=== PATIENT | male | born 1960 | race Caucasian/White ===

== ENCOUNTER 2019-07-28 20:49 | Emergency (ER) | payer MEDICARE, MEDICAID, SELFPAY ==
[2019-07-28 20:51] VITALS: BP 153/91; PULSE 102; RESP 20; TEMP 36.3; O2SAT 97; BMI 35.0
--- NOTE | 2019-07-28 20:54 | W.ED.EYEPROB ---
HPI - Eye Problem General: Chief complaint: Eye Problems Stated complaint: FO R EYE Time Seen by Provider: 07/28/19 20:54 Source: patient Mode of arrival: ambulatory Limitations: no limitations History of Present Illness: HPI Narrative: Patient comes in for possible foreign body to the right eye. Patient was mowing the lawn today and thinks he got something in his eye. Patient is irrigated frequently throughout the day without any relief. Patient appears well. Patient appears in moderate discomfort. chief complaint: eye pain and foreign body Review of Systems General: Reports: 10 or more systems reviewed and unremarkable except in HPI and below Eyes: Reports: eye discomfort and eye redness PFS ED PFSH: Social History Smoking and tobacco status: current every day smoker Physical Exam Const: COMMON NORMALS: no apparent distress and oriented x3 GENERAL APPEARANCE: cooperative HENMT: COMMON NORMALS: normocephalic, TM's normal bilaterally and external nose normal HEAD & SCALP: normal to inspection and normocephalic NOSE: external nose normal TYMPANIC MEMBRANE: TM's normal bilaterally MOUTH: oral and palatal mucosa normal THROAT: posterior oropharynx normal Eye: COMMON NORMALS: PERRL, EOMs intact bilaterally and conjunctivae normal GENERAL EYE: normal light reflex VISUAL ACUITY: Yes acuity normal ALIGNMENT: Yes alignment normal EYELID: eyelid abnormal (1 mm foreign body noted to the right upper eyelid, removed with Q-tip, patient tolerated well.) CONJUNCTIVA: Yes conjunctivae normal and Yes conjunctiva abnormal positive right conjunctival injection CORNEA: Yes fluorescein used (Abrasion noted to the right lateral cornea not involving the iris or pupil.) PUPIL: Yes PERRL DIRECT OPHTHALMOSCOPY: Yes normal light reflex Neck/C-Spine: COMMON NORMALS: full ROM Lymph: LYMPHATIC: no lymphadenopathy noted Chest: COMMONS NORMALS: inspection of chest normal Resp: COMMON NORMALS: normal respiratory effort EFFORT & INSPECTION: Yes able to speak in complete sentences Cardio: COMMON NORMALS: regular rate and regular rhythm RATE: regular rate RHYTHM: regular rhythm GI: COMMON NORMALS: non-tender : COMMON NORMALS: Yes no CVA tenderness BLADDER/KIDNEY EXAM: Yes no CVA tenderness Back/Pelvis: COMMON NORMALS: no CVA tenderness and thoracic and lumbar spine normal to inspection Extremity: COMMON NORMALS: normal to inspection Neuro: COMMON NORMALS: oriented x3 and moves all extremities Psych: COMMON NORMALS: mental status grossly normal and cooperative Skin: COMMON NORMALS: no rashes or lesions noted GENERAL SKIN EXAM: no rashes or lesions noted Course Vital Signs: Vital signs: Vital Signs Temperature 97.4 F L 07/28/19 20:51 Pulse Rate 102 H 07/28/19 20:51 Respiratory Rate 20 H 07/28/19 20:51 Blood Pressure 153/91 07/28/19 20:51 Pulse Oximetry 97 07/28/19 20:51 MDM - Eye Problem MDM Narrative: Medical decision making narrative: Patient comes in today for complaints of foreign body to the right eye. On exam we noted a 1 mm dark object adhered to the inner upper eyelid on the right eye. It was easily removed with a moistened Q-tip. Fluorescein stain was used and noted abrasion to the lateral right not involving the iris or pupil. No signs of corneal laceration is noted. Pupils were equal reactive. Ocular motor movement was noted normal. Vital signs were normal. Patient was treated with tetracaine for pain tolerated well with good improvement. Patient was given eye ointment to use 3 times a day to the eye for the next 5 days for corneal abrasion for prophylaxis of infection. Reviewed recommendations for follow-up with 3 days for eye career development consultant. Patient reported understanding. Discharge Plan Discharge Patient Disposition: Home, Self-Care Clinical Impression: Corneal abrasion Qualifiers: Encounter type: initial encounter Laterality: right Qualified Code(s): S05.01XA - Injury of conjunctiva and corneal abrasion without foreign body, right eye, initial encounter Foreign body in eye Qualifiers: Encounter type: initial encounter Laterality: right Qualified Code(s): T15.91XA - Foreign body on external eye, part unspecified, right eye, initial encounter Condition: Stable Discharge Orders: Discharge Order (Routine); Ordered 07/28/19 Ordered By: Anjum Kay Referrals: Horace Noriega DO [Family Provider] - Discharge Diet: Usual diet Discharge Activity: Increase activity as tolerated Patient Instructions: Corneal Abrasion (ED) Activity Restrictions/Additional Instructions: Use eye ointment 3 times a day for then next 5 days Use eye drops for pain, 1 drop to right eye every 3 hours as needed for pain for the next 2 days Have eye rechecked in 2 days if it remains painful Return to ER for fever or worsening symptoms Follow-up with eye career development consultant in 3 days for recheck Coding Level of Care Code ED 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
[2019-07-28] MEDS: neomycin-poly-dex Op oint 3.5 gm 1 APPLIC EYE-RIGHT (21:26)
[2019-07-28] MEDS: fluorescein 1 mg Strip EYE-RIGHT (21:27)
[2019-07-28] MEDS: tetracaine 0.5% Op Soln 4 mL Btl 1 DROP EYE-RIGHT (21:27)
[2019-07-28] MEDS: eye irrigation 30 mL Btl 10 DROP EYE-RIGHT (21:27)
== END 2019-07-28 21:33 | disposition home or self-care (01) ==
PROVIDERS: Emergency Provider Nurse Practitioner Family; Family Provider Family Medicine
DX: T15.91XA Foreign body on external eye, part unspecified, right eye, initial encounter (principal); T15.01XA Foreign body in cornea, right eye, initial encounter; X58.XXXA Exposure to other specified factors, initial encounter; Y93.H2 Activity, gardening and landscaping; F17.200 Nicotine dependence, unspecified, uncomplicated
CPT/HCPCS: 12345; 99281; 99283

== ENCOUNTER 2021-07-07 16:39 | Emergency (ER) | payer MEDICARE, MEDICAID, SELFPAY ==
[2021-07-07 16:47] VITALS: BP 136/75; PULSE 90; RESP 16; TEMP 37; O2SAT 98; BMI 35.2
--- NOTE | 2021-07-07 16:50 | CTR_ITS ---
PROCEDURE INFORMATION: Exam: CT Chest With Contrast; Diagnostic Exam date and time: 07/07/2021 5:54 PM Age: 60 years old Clinical indication: Injury or trauma; Other: Crushing injury; Blunt trauma (contusions or hematomas) and crushing; Patient HX: PT was working under car and it fell on his right side; Additional info: Eval trauma TECHNIQUE: Imaging protocol: Diagnostic computed tomography of the chest with contrast. Sagittal and coronal reformatted images were created and reviewed. Radiation optimization: All CT scans at this facility use at least one of these dose optimization techniques: automated exposure control; mA and/or kV adjustment per patient size (includes targeted exams where dose is matched to clinical indication); or iterative reconstruction. Contrast material: OMNI 300; Contrast volume: 95 ml; Contrast route: INTRAVENOUS (IV); COMPARISON: CR (CHEST, ) 07/07/2021 4:19 PM RADIATION DOSE METRICS: Total DLP (mGy-cm): 1965.58 FINDINGS: Trachea: Debris layering in the right mainstem bronchus. This may represent bronchial secretions. Lungs: Lungs are clear bilaterally. Calcified granuloma in the right lower lobe. Pleural spaces: No pneumothorax. No pleural effusion. Heart: The heart is unremarkable as visualized. Esophagus: The esophagus is unremarkable. Mediastinal space: No mediastinal hematoma. No pneumomediastinum. Pulmonary arteries: Pulmonary arteries are unremarkable. Aorta: No evidence for aortic aneurysm or aortic dissection. No extravasation of contrast from the thoracic vessels. Veins: Pulmonary veins are unremarkable. Lymph nodes: No lymphadenopathy. Bones/joints: There is a transverse fracture of the mid/distal right clavicle. There is anterior displacement of 1 shaft width with approximately 1.4 cm of override of the distal fracture fragment. Multiple old right-sided rib fractures. Acute mildly displaced fractures of the anterior right 2nd, 3rd, and 4th ribs. Nondisplaced acute fractures of the posterior right 2nd, 3rd, and 4th ribs. Nondisplaced acute fracture of the lateral left 4th rib. Multilevel degenerative changes of varying severity in the visualized spine. Old, mild compression deformity of T8. Soft tissues: No acute abnormality in the extrathoracic soft tissues. PROCEDURE INFORMATION: Exam: CT Abdomen And Pelvis With Contrast Exam date and time: 07/07/2021 5:54 PM Age: 60 years old Clinical indication: Injury or trauma; Other: Crushing injury; Blunt trauma (contusions or hematomas) and crushing; Patient HX: PT was working under car and it fell on his right side; Additional info: Eval trauma TECHNIQUE: Imaging protocol: Computed tomography of the abdomen and pelvis with contrast. Sagittal and coronal reformatted images were created and reviewed. Radiation optimization: All CT scans at this facility use at least one of these dose optimization techniques: automated exposure control; mA and/or kV adjustment per patient size (includes targeted exams where dose is matched to clinical indication); or iterative reconstruction. Contrast material: OMNI 300; Contrast volume: 95 ml; Contrast route: INTRAVENOUS (IV); COMPARISON: CR (CHEST, ) 07/07/2021 4:19 PM RADIATION DOSE METRICS: Total DLP (mGy-cm): 1965.58 FINDINGS: Liver: The liver is unremarkable. Gallbladder and bile ducts: Single gallstone in the gallbladder. No gallbladder wall thickening. No biliary ductal dilatation. Pancreas: The pancreas is unremarkable. No pancreatic ductal dilatation. Spleen: Calcified granuloma in the spleen. Adrenal glands: The right and left adrenal glands are unremarkable. Kidneys and ureters: The right and left kidneys are unremarkable. The right and left ureters are unremarkable. Stomach and bowel: No obstruction. No mucosal thickening. Appendix: The appendix is visualized and is unremarkable. No findings to suggest acute appendicitis. Intraperitoneal space: No free intraperitoneal air. No ascites. No loculated fluid collections to suggest an abscess. Vasculature: Mild atherosclerotic changes in the visualized arteries. No evidence for aortic aneurysm or aortic dissection. Hepatic veins, portal veins, splenic vein, and SMV are patent. No extravasation of contrast from the abdominopelvic vessels. Lymph nodes: No lymphadenopathy. Urinary bladder: Unremarkable as visualized. Reproductive: The prostate gland is mildly enlarged. Nonspecific parenchymal calcifications in the prostate gland. Bones/joints: The right and left sacroiliac joints are fused. Moderate degenerative changes at both the right and left hips. Multilevel degenerative changes of varying severity in the visualized spine. No acute fracture. Soft tissues: No acute abnormality in the extra-abdominal soft tissues. Small fat containing supraumbilical hernia. No evidence for strangulation. CT/CT chest abd pel w con* IMPRESSION: 1. There is a transverse fracture of the mid/distal right clavicle. There is anterior displacement of 1 shaft width with approximately 1.4 cm of override of the distal fracture fragment. 2. Acute mildly displaced fractures of the anterior right 2nd, 3rd, and 4th ribs. Nondisplaced acute fractures of the posterior right 2nd, 3rd, and 4th ribs. Nondisplaced acute fracture of the lateral left 4th rib. 3. No evidence for cardiovascular or pulmonary injury. 4. Debris layering in the right mainstem bronchus. This may represent bronchial secretions. 5. Incidental/nonacute findings are listed in the report. IMPRESSION: 1. No acute abnormality in the abdomen or pelvis. 2. No evidence for acute traumatic injury in the abdomen or pelvis. 3. Cholelithiasis. 4. Incidental/nonacute findings are listed in the report.
--- NOTE | 2021-07-07 16:57 | W.ED.EXTPRO ---
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
[2021-07-07 17:09] VITALS: RESP 16
[2021-07-07] MEDS: morphine 4 mg/mL SDV 1 mL 2 MG IVP (17:09)
[2021-07-07 17:21] LABS: Basophils # 0.1 10^3/uL (0.0-0.1); Basophils % 0.6 %; Eosinophils # 0.1 10^3/uL (0.0-0.8); Hematocrit 44.7 % (42.0-52.0); Hemoglobin 14.5 g/dL (11.7-16.6); Lymphocytes # 2.9 10^3/uL (0.8-4.8); Lymphocytes % 27.4 %; Mean Corpuscular HGB Conc 32.4 g/dL (30.0-36.0); Mean Corpuscular Hemoglobin 28.2 pg (28.0-34.0); Mean Platelet Volume 10.2 fL (7.4-10.4); Monocytes # 0.8 10^3/uL (0.2-0.9); Monocytes % 7.3 %; Nucleated Red Blood Cells % 0 %; Platelet Count 257 10^3/cmm (130-400); Red Blood Count 5.14 10^6/uL (4.1-5.3); White Blood Count 10.6 10^3/uL (4.0-10.0)
[2021-07-07 17:43] LABS: Anion Gap 13.6 (5-19); Blood Urea Nitrogen 12 mg/dL (6-20); Calcium 10.4 mg/dL (8.5-10.5); Carbon Dioxide 30 mmol/L (22-29); Chloride 96 mmol/L (98-107); Glomerular Filtration Rate 138.4 mL/min (90-130); Glucose 96 mg/dL (65-115); Osmolality Calculated 282 mOsm/kg (285-295); Potassium 3.6 mmol/L (3.5-5.1); Sodium 136 mmol/L (136-145)
[2021-07-07 17:45] VITALS: RESP 16
[2021-07-07] MEDS: HYDROmorphone 1 mg/mL INJ 1 mL 0.5 MG IVP (17:45)
[2021-07-07] MEDS: iohexol 300 mg/mL 100 mL Btl IV (17:51)
--- NOTE | 2021-07-07 19:02 | PC.NURSE ---
report given to adam rn assumed care.
[2021-07-07 19:15] VITALS: BP 145/79; PULSE 78; RESP 18; TEMP 36.7; O2SAT 95
--- NOTE | 2021-07-07 19:29 | PC.NURSE ---
declines to stay and wait on RT for IS
--- NOTE | 2021-07-12 11:48 | DCPLANNER ---
manager project management had message to speak with patient about getting established with a primary care physician. manager project management spoke with patient, he stated that he has a primary care physician. Patient states that [place] [facility] [place]
== END 2021-07-07 19:30 | disposition home or self-care (01) ==
PROVIDERS: Emergency Provider Emergency Medicine
DX: S42.031A Displaced fracture of lateral end of right clavicle, initial encounter for closed fracture (principal); S22.43XA Multiple fractures of ribs, bilateral, initial encounter for closed fracture; M54.2 Cervicalgia; R07.9 Chest pain, unspecified; F17.210 Nicotine dependence, cigarettes, uncomplicated; W20.8XXA Other cause of strike by thrown, projected or falling object, initial encounter
CPT/HCPCS: 70450; 71045; 71260; 72125; 72170; 74177; 80048; 85025; 96374; 96375; 99283; J1170; J2270; Q9967

== ENCOUNTER 2021-07-22 14:55 | Emergency (ER) | payer MEDICARE, MEDICAID, SELFPAY ==
[2021-07-22 15:05] VITALS: BP 146/65; PULSE 87; RESP 20; TEMP 37.1; O2SAT 98; BMI 29.1
[2021-07-22 15:17] VITALS: BP 121/71; PULSE 87; RESP 20; O2SAT 97
--- NOTE | 2021-07-22 15:26 | XR_ITS ---
WS: [id number] Exam: XR shoulder LT min 2V* [id number] Date/Time of Exam: 07/22/2021 3:29 PM Reason For Exam: trauma No fracture or dislocation. Degenerative change at the AC joint with the heterotropic ossification al uriel the superior margin of the joint. Soft tissues are otherwise unremarkable. XR/XR shoulder LT min 2V* [id number] IMPRESSION: 1. No fracture or dislocation. 2. Degenerative changes at the AC joint as above.
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
--- NOTE | 2021-07-25 10:30 | DCPLANNER ---
Addendum entered by Lucy Rojas 08/31/21 20:43: Patient had a follow up appointment scheduled with ortho - patient did attend appointment. Addendum entered by Lucy Rojas 07/26/21 08:00: Patient has a follow up appointment scheduled for Monday, August 16, 2021 at 3:[address] Sheets at ortho. Clinic will call patient with appointment information. Original Note: geothermal production manager had message to schedule a follow up appointment for patient with ortho. geothermal production manager sent patients information to the front staff at ortho thru workload messaging system. Patients information will be printed and reviewed. Clinic will call patient with appointment information.
== END 2021-07-22 16:18 | disposition home or self-care (01) ==
PROVIDERS: Emergency Provider Physician Assistant
DX: M25.512 Pain in left shoulder (principal); F17.210 Nicotine dependence, cigarettes, uncomplicated
CPT/HCPCS: 73030; 99282

== ENCOUNTER 2022-10-20 06:00 | Emergency (ER) | payer MEDICARE, MEDICAID, SELFPAY ==
[2022-10-20 06:01] VITALS: BP 124/67; PULSE 93; RESP 20; TEMP 36.8; O2SAT 95; BMI 20.3
--- NOTE | 2022-10-20 06:06 | XR_ITS ---
WS: [id number] Exam: XR chest 1V portable [id number] Date/Time of Exam: 10/20/2022 6:06 AM Reason For Exam: sob The lungs are clear and fully inflated. Normal cardiomediastinal silhouette. Several old right rib fr actures. Nonunion fracture of the right clavicle. Healed left clavicle fracture. Degenerative changes of the thoracic spine moderate DJD of both shoulders. XR/XR chest 1V portable [id number] IMPRESSION: 1. No acute cardiopulmonary process.
--- NOTE | 2022-10-20 06:08 | ECG_ITS ---
[facility] Test Date: 2022-10-20 Pat Name: Charbel Hood Department: Room: Gender: Male Patient Biller: : [id number] Requested By: Horace Coelho Order Number: [id number] Stephane MD: Serge Echeverria M.D. Measurements Intervals [place] Rate: 77 P: 64 SC: 152 QRS: 69 QRSD: 106 T: 79 QT: 370 QTc: 421 Interpretive Statements SINUS RHYTHM WITH OCCASIONAL VENTRICULAR PREMATURE COMPLEXES Compared to ECG 10/17/2022 12:19:13 Ventricular premature complex(es) now present Electronically Signed On 10-20-2022 15:49:35 CDT by Serge Echeverria M.D. [id number]
--- NOTE | 2022-10-20 06:11 | ED_ITS ---
HPI - SOB/Dyspnea General: Chief Complaint: Shortness of Breath/Dyspnea Stated Complaint: SOB Time Seen by Provider: 10/20/22 06:01 History of Present Illness: HPI Narrative: 62-year-old male who presents presents emergency room via EMS complaining of shortness of breath. States he had an asthma attack. He was given albuterol in route with some mild relief of symptoms. He does state he is doing somewhat better. No fever sweats or chills or productive cough. He has a small-volume nebulizer but he does not have any albuterol for that. He has had increasing trouble with the recent heat wave. MD elicited complaint: shortness of breath and cough Pertinent past history: asthma Onset (ago): day(s) Timing: intermittent Severity: moderate Exacerbating factors: exertion, coughing, inspiration and humidity Relieving factors: rest and bronchodilators Known history of: asthma Associated symptoms: Deny abdominal pain, chest congestion, chest pain, cough, diaphoresis, dizziness, extremity pain, fever(s), hemoptysis, lightheadedness, myalgias, nausea, orthopnea, palpitations, paresthesias, polydipsia, polyuria, rash, sense of impending doom, syncope or vomiting Treatment prior to arrival: oxygen and bronchodilator Review of Systems Const: Denies: fever(s), chills or diaphoresis ENMT: Denies: throat pain, ear or mastoid pain, nasal discharge or nasal congestion Card: Denies: chest pain, palpitations, lightheadedness, syncope or orthopnea Resp: Reports: dyspnea, non-productive cough and wheezing; Denies: hemoptysis or chest congestion GI: Denies: abdominal pain, nausea or vomiting : Denies: flank pain, dysuria, urinary frequency or urinary urgency Musc: Denies: extremity pain Skin/Breast: Denies: rash or pruritus Neuro: Denies: dizziness Endo: Denies: polyuria or polydipsia PFSH ED PFSH: Social History Smoking and tobacco status: current every day smoker Physical Exam Const: GENERAL APPEARANCE: cooperative and comfortable ORIENTATION/CONSCIOUSNESS: Yes awake, Yes oriented to person, Yes oriented to place and Yes oriented to time HENMT: COMMON NORMALS: normocephalic, atraumatic and hearing grossly normal bilaterally HEAD & SCALP: normocephalic and atraumatic Resp: COMMON NORMALS: normal respiratory effort, No retractions and No use of accessory muscles AUSCULTATION: wheezes Cardio: COMMON NORMALS: regular rate, regular rhythm and No murmurs present (Cardio) RATE: regular rate RHYTHM: regular rhythm GI: COMMON NORMALS: Soft to palpation and No hepatosplenomegaly present AUSCULTATION: Yes normoactive bowel sounds PALPATION: Yes Soft to palpation, No Tenderness to palpation present (GI), No Guarding due to palpation present (GI) and Yes No hepatosplenomegaly present Extremity: COMMON NORMALS: normal to inspection, capillary refill normal, no clubbing, cyanosis or edema, no calf tenderness and no pedal edema Neuro: SENSORIUM/ORIENTATION: Yes oriented to person, Yes oriented to place and Yes oriented to time Skin: COMMON NORMALS: no rashes or lesions noted GENERAL SKIN EXAM: no rashes or lesions noted Course Vital Signs: Vital signs: Vital Signs Temperature 98.3 F 10/20/22 06:01 Pulse Rate 92 10/20/22 07:10 Respiratory Rate 18 10/20/22 07:10 Blood Pressure 109/57 10/20/22 07:10 Pulse Oximetry 94 10/20/22 07:10 Oxygen Delivery Me thod Room Air 10/20/22 06:18 MDM - SOB/Dyspnea Medical Decision Making Improved with nebulizers and steroids. Chest x-ray unremarkable. We will discharge patient home on steroid taper gave refill for albuterol. Follow-up with his primary care doctor. Return if has further problems avoid heat and tobacco smoke exposure. Medical Records I reviewed the patient's medical records. Lab Data I reviewed the patient's lab results. Labs/Radiology: Radiology Impressions Chest X-Ray 10/20/22 06:06 IMPRESSION: 1. No acute cardiopulmonary process. Discharge Plan Discharge Patient Disposition: Home Clinical Impression: Asthma with exacerbation Condition: Stable Prescriptions: New prednisone 20 mg tablet 20 mg PO TID Qty: 15 0RF Rx Instructions: 1 p.o. 3 times daily x3 days, 1 p.o. twice daily x2 days, 1 p.o. daily x2 days albuterol sulfate 2.5 mg /3 mL (0.083 %) solution for nebulization 2.5 mg inhalation Q4H PRN (Reason: shortness of breath or wheezing) Qty: 90 0RF No Action albuterol sulfate 2.5 mg /3 mL (0.083 %) solution for nebulization 2.5 mg inhalation TID doxycycline hyclate 100 mg capsule 100 mg PO BID 7 Days Qty: 14 0RF Discharge Orders: Discharge ED (Routine); Ordered 10/20/22 Ordered By: Horace Noriega Referrals: Pili Longo MD [Primary Care Provider] - Patient Instructions: Asthma Exacerbation - Adult, Opioid Safety, Pain Management Coding Level of Care Code ED Mixing Roll Operator for David De La Garza
[2022-10-20] MEDS: dexamethasone 10 mg/mL INJ IM (06:15)
[2022-10-20 06:18] VITALS: PULSE 87; RESP 20; O2SAT 96
[2022-10-20] MEDS: ipratropium-albuterol 3 mL Neb INHALATION (06:18)
[2022-10-20 07:10] VITALS: BP 109/57; PULSE 92; RESP 18; O2SAT 94
== END 2022-10-20 07:11 | disposition home or self-care (01) ==
PROVIDERS: Emergency Provider Family Medicine; PCP Family Medicine
DX: J45.901 Unspecified asthma with (acute) exacerbation (principal); F17.210 Nicotine dependence, cigarettes, uncomplicated
CPT/HCPCS: 71045; 93005; 94640; 96372; 99284; J1100

== ENCOUNTER 2022-10-21 10:07 | Emergency (ER) | payer MEDICARE, MEDICAID, SELFPAY ==
[2022-10-21 10:08] VITALS: BP 116/94; PULSE 97; RESP 17; TEMP 36.9; O2SAT 94
--- NOTE | 2022-10-21 10:24 | W.ED.SOB ---
HPI - SOB/Dyspnea General: Chief Complaint: Shortness of Breath/Dyspnea Stated Complaint: SOB Time Seen by Provider: 10/21/22 10:10 History of Present Illness: HPI Narrative: Presents to the ER by EMS with complaints of shortness of breath. Patient states he is walking to [facility] for 30 this morning to get him some food and on the way back he gets short of breath. Patient is currently homeless. Patient was seen approximately twice in the last 4 days. Patient has been discharged with doxycycline, albuterol, prednisone, and said it is worked a little bit but then he got more short of breath today so he decided come back to the ER. MD elicited complaint: shortness of breath Pertinent past history: COPD Context: occurred during exertion Timing: improved Severity: mild Exacerbating factors: exertion Relieving factors: oxygen, rest, bronchodilators and medication Known history of: COPD Associated symptoms: Reports no associated symptoms Treatment prior to arrival: oxygen and bronchodilator Review of Systems General: Reports: 10 or more systems reviewed and unremarkable except in HPI and below PFSH ED PFSH: Social History Smoking and tobacco status: current every day smoker Physical Exam Const: COMMON NORMALS: no acute distress, average body habitus, patient oriented x3, no limitations, healthy appearing, alert and well nourished HENMT: COMMON NORMALS: normocephalic, atraumatic, hearing grossly normal bilaterally, external ears normal, Normal external nose present and moist oral mucous membranes HEAD & SCALP: normocephalic and atraumatic NOSE: Normal external nose present EXTERNAL EAR: Yes external ears normal Eye: COMMON NORMALS: Equal, round and reactive pupils present, EOMs intact bilaterally, conjunctivae normal and no scleral icterus CONJUNCTIVA: Yes conjunctivae normal PUPIL: Yes Equal, round and reactive pupils present Neck/C-Spine: COMMON NORMALS: full ROM, no lymphadenopathy, supple, no meningeal signs, no JVD and Thyroid normal THYROID: Thyroid normal Chest: COMMONS NORMALS: normal inspection of the chest and normal palpation of entire chest wall Resp: EFFORT & INSPECTION: Yes able to speak in complete sentences and Yes symmetric chest movement AUSCULTATION: wheezes Cardio: COMMON NORMALS: no JVD, regular rate, regular rhythm, S1 normal heart sound present, S2 normal heart sound present, No gallops present (Cardio), No clicks present (Cardio), No murmurs present (Cardio) and No rub (Cardio) RATE: regular rate RHYTHM: regular rhythm HEART SOUNDS: S1 normal heart sound present and S2 normal heart sound present GI: COMMON NORMALS: Normal to inspection, nondistended, normoactive bowel sounds present, Soft to palpation, non-tender, No hepatosplenomegaly present and no masses PALPATION: Yes Soft to palpation and Yes No hepatosplenomegaly present Neuro: COMMON NORMALS: patient oriented x3 SENSORIUM/ORIENTATION: Yes alert MENINGEAL SIGNS: Yes no meningeal signs Course Vital Signs: Vital signs: Vital Signs Temperature 98.4 F 10/21/22 10:08 Pulse Rate 97 10/21/22 10:08 Respiratory Rate 17 10/21/22 10:08 Blood Pressure 116/94 10/21/22 10:08 Pulse Oximetry 94 10/21/22 10:08 Oxygen Delivery Me thod Room Air 10/21/22 10:08 MDM - SOB/Dyspnea Medical Decision Making Patient presents to the ER with complaints of shortness of breath. This is the third time in 4 days. Patient does have albuterol, doxycycline, prednisone at home. Patient was given albuterol treatment on route patient received a DuoNeb treatment in ER as well as 10 mg Decadron. Patient will be discharged back home to continue taking the medicine he is currently on. Medical Records I reviewed the patient's medical records. Lab Data I reviewed the patient's lab results. Discharge Plan Discharge Patient Disposition: Home Clinical Impression: Homeless, Acute exacerbation of chronic obstructive airways disease Condition: Stable Prescriptions: No Action prednisone 20 mg tablet 20 mg PO TID Qty: 15 0RF Rx Instructions: 1 p.o. 3 times daily x3 days, 1 p.o. twice daily x2 days, 1 p.o. daily x2 days albuterol sulfate 2.5 mg /3 mL (0.083 %) solution for nebulization 2.5 mg inhalation Q4H PRN (Reason: shortness of breath or wheezing) Qty: 90 0RF albuterol sulfate 2.5 mg /3 mL (0.083 %) solution for nebulization 2.5 mg inhalation TID doxycycline hyclate 100 mg capsule 100 mg PO BID 7 Days Qty: 14 0RF Discharge Orders: Discharge ED (Routine); Ordered 10/21/22 Ordered By: Paulie Serna Referrals: Pili Longo MD [Primary Care Provider] - Patient Instructions: Opioid Safety, Pain Management Coding Level of Care Code ED Artificial Breeding Ranch Supervisor for David De La Garza
[2022-10-21] MEDS: ipratropium-albuterol 3 mL Neb INHALATION (10:28)
[2022-10-21 10:30] VITALS: PULSE 93; RESP 17; O2SAT 95
[2022-10-21] MEDS: dexamethasone 10 mg/mL INJ IM (10:32)
[2022-10-21 10:41] VITALS: BP 116/94; PULSE 97; RESP 18; O2SAT 96
== END 2022-10-21 10:42 | disposition home or self-care (01) ==
PROVIDERS: Emergency Provider Emergency Medicine; PCP Family Medicine
DX: J44.1 Chronic obstructive pulmonary disease with (acute) exacerbation (principal); Z59.00 Homelessness unspecified
CPT/HCPCS: 94640; 96372; 99283; 99284; J1100; J3535

== ENCOUNTER 2022-10-21 17:40 | Emergency (ER) | payer MEDICARE, MEDICAID, SELFPAY ==
[2022-10-21 18:07] VITALS: BP 148/62; PULSE 84; RESP 20; TEMP 36.8; O2SAT 93
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
[2022-10-21] MEDS: ipratropium-albuterol 3 mL Neb INHALATION (18:47)
[2022-10-21] MEDS: albuterol 8 gm MDI 2 PUFF INHALATION (18:48)
[2022-10-21 18:49] VITALS: PULSE 79; RESP 16; O2SAT 99
== END 2022-10-21 19:02 | disposition home or self-care (01) ==
PROVIDERS: Emergency Provider Nurse Practitioner Family; PCP Family Medicine
DX: J41.0 Simple chronic bronchitis (principal)
CPT/HCPCS: 94640; 99283; J3535

== ENCOUNTER 2022-10-22 12:19 | Emergency (ER) | payer MEDICARE, MEDICAID, SELFPAY ==
[2022-10-22 12:29] VITALS: BP 141/86; PULSE 78; RESP 22; TEMP 36.9; O2SAT 95
--- NOTE | 2022-10-22 12:38 | W.ED.SOB ---
HPI - SOB/Dyspnea General: Chief Complaint: Shortness of Breath/Dyspnea Stated Complaint: sob Time Seen by Provider: 10/22/22 12:30 Source: patient Mode of arrival: ambulatory Limitations: no limitations History of Present Illness: HPI Narrative: 62-year-old male who is homeless has been seen here multiple times over the last week for shortness of breath he states that he does not have an albuterol inhaler he states he was written a prescription but cannot get it filled he states he needs albuterol he has had a slight dyspnea he is well-appearing here he is 96% on room air denies any worsening proving factors. Associated symptoms: Deny abdominal pain, chest pain, fever(s), nausea or vomiting Review of Systems Const: Denies: fever(s), chills or body aches Eyes: Denies: eye discomfort ENMT: Denies: throat pain or dental pain Card: Denies: chest pain Resp: Reports: dyspnea GI: Denies: abdominal pain, nausea, vomiting or diarrhea Musc: Denies: neck pain or back pain Skin/Breast: Denies: rash Neuro: Denies: headache(s) PFSH ED PFSH: Social History Smoking and tobacco status: current every day smoker Physical Exam Const: COMMON NORMALS: no acute distress, patient oriented x3 and healthy appearing HENMT: COMMON NORMALS: normocephalic and atraumatic HEAD & SCALP: normocephalic and atraumatic Eye: COMMON NORMALS: Equal, round and reactive pupils present and EOMs intact bilaterally PUPIL: Yes Equal, round and reactive pupils present Neck/C-Spine: COMMON NORMALS: full ROM and supple Chest: COMMONS NORMALS: normal inspection of the chest and normal palpation of entire chest wall Resp: COMMON NORMALS: normal respiratory effort, No retractions, No use of accessory muscles and clear to auscultation bilaterally AUSCULTATION: clear to auscultation bilaterally Cardio: COMMON NORMALS: regular rate, regular rhythm and No murmurs present (Cardio) RATE: regular rate RHYTHM: regular rhythm GI: COMMON NORMALS: Normal to inspection, nondistended, normoactive bowel sounds present, Soft to palpation, non-tender and no masses PALPATION: Yes Soft to palpation Extremity: COMMON NORMALS: normal to inspection and full ROM Neuro: COMMON NORMALS: patient oriented x3, moves all extremities and no focal motor deficits Psych: COMMON NORMALS: mental status grossly normal, Normal thought process present and cooperative THOUGHT PROCESS: Normal thought process present Skin: COMMON NORMALS: no rashes or lesions noted and no wounds GENERAL SKIN EXAM: no rashes or lesions noted Course Vital Signs: Vital signs: Vital Signs Temperature 98.5 F 10/22/22 12:29 Pulse Rate 78 10/22/22 12:29 Respiratory Rate 22 H 10/22/22 12:29 Blood Pressure 141/86 10/22/22 12:29 Pulse Oximetry 95 10/22/22 12:29 Oxygen Delivery Me thod Room Air 10/22/22 12:29 MDM - SOB/Dyspnea Medical Decision Making Patient presents with dyspnea he is homeless and does not have any albuterol inhalers we will send him home with an inhaler he is well-appearing here he is in no distress he is stable for discharge. Discharge Plan Discharge Patient Disposition: Home Clinical Impression: Dyspnea Condition: Stable Prescriptions: No Action prednisone 20 mg tablet 20 mg PO TID Qty: 15 0RF Rx Instructions: 1 p.o. 3 times daily x3 days, 1 p.o. twice daily x2 days, 1 p.o. daily x2 days albuterol sulfate 2.5 mg /3 mL (0.083 %) solution for nebulization 2.5 mg inhalation Q4H PRN (Reason: shortness of breath or wheezing) Qty: 90 0RF albuterol sulfate 2.5 mg /3 mL (0.083 %) solution for nebulization 2.5 mg inhalation TID doxycycline hyclate 100 mg capsule 100 mg PO BID 7 Days Qty: 14 0RF Discharge Orders: Discharge ED (Routine); Ordered 10/22/22 Ordered By: Idalia Pickett Referrals: Pili Longo MD [Primary Care Provider] - 1-3 days Discharge Diet: Advance as tolerated Discharge Activity: Resume usual activity Patient Instructions: Dyspnea (ED) Coding Level of Care Code ED Underground Truck Operator for David De La Garza
[2022-10-22] MEDS: albuterol 8 gm MDI 2 PUFF INHALATION (12:56)
[2022-10-22 12:57] VITALS: PULSE 89; RESP 18; O2SAT 96
[2022-10-22 13:11] VITALS: PULSE 89; RESP 18; O2SAT 96
== END 2022-10-22 13:12 | disposition home or self-care (01) ==
PROVIDERS: Emergency Provider Emergency Medicine; PCP Family Medicine
DX: R06.00 Dyspnea, unspecified (principal); F17.210 Nicotine dependence, cigarettes, uncomplicated
CPT/HCPCS: 94640; 99283; J3535

== ENCOUNTER 2022-10-22 20:12 | Emergency (ER) | payer MEDICARE, MEDICAID, SELFPAY ==
[2022-10-22 20:21] VITALS: BP 136/77; PULSE 81; RESP 16; TEMP 37.2; O2SAT 94; BMI 25.3
--- NOTE | 2022-10-22 20:30 | W.ED.WOUNDLC ---
HPI - Wound/Laceration General: Chief Complaint: Wound/Laceration Stated Complaint: fall, head lac Time Seen by Provider: 10/22/22 20:20 PFSH ED PFSH: Social History Smoking and tobacco status: current every day smoker Course Vital Signs: Vital signs: Vital Signs Temperature 98.9 F 10/22/22 20:21 Pulse Rate 81 10/22/22 20:21 Respiratory Rate 16 10/22/22 20:21 Blood Pressure 136/77 10/22/22 20:21 Pulse Oximetry 94 10/22/22 20:21 Oxygen Delivery Me thod Room Air 10/22/22 20:21 Discharge Plan Discharge Condition: Stable Prescriptions: No Action prednisone 20 mg tablet 20 mg PO TID Qty: 15 0RF Rx Instructions: 1 p.o. 3 times daily x3 days, 1 p.o. twice daily x2 days, 1 p.o. daily x2 days albuterol sulfate 2.5 mg /3 mL (0.083 %) solution for nebulization 2.5 mg inhalation Q4H PRN (Reason: shortness of breath or wheezing) Qty: 90 0RF albuterol sulfate 2.5 mg /3 mL (0.083 %) solution for nebulization 2.5 mg inhalation TID doxycycline hyclate 100 mg capsule 100 mg PO BID 7 Days Qty: 14 0RF Referrals: Pili Longo MD [Primary Care Provider] - Coding Level of Care Code ED Director Of Outpatient Services for David De La Garza
--- NOTE | 2022-10-22 20:42 | ED_ITS ---
HPI - Wound/Laceration General: Chief Complaint: Wound/Laceration Stated Complaint: fall, head lac Time Seen by Provider: 10/22/22 20:20 History of Present Illness: Patient presents to the ER today with complaints of fall from standing height and hitting the left side of his scalp on something. Patient presents with about a 2 cm laceration bleeding is controlled there is no loss of conscious no focal neurologic deficits. Patient is not on blood thinners. Patient is homeless. Review of Systems General: Reports: 10 or more systems reviewed and unremarkable except in HPI and below PFSH ED PFSH: Social History Smoking and tobacco status: current every day smoker Physical Exam Const: COMMON NORMALS: no acute distress, average body habitus, patient oriented x3, no limitations, healthy appearing, alert and well nourished HENMT: COMMON NORMALS: hearing grossly normal bilaterally, external ears normal, Normal external nose present and moist oral mucous membranes NOSE: Normal external nose present EXTERNAL EAR: Yes external ears normal OTHER: PosteriorAbout a 2-1/2 cm laceration and abrasion. Region of the patient's scalp. Bleeding is controlled at this time. Eye: COMMON NORMALS: Equal, round and reactive pupils present, EOMs intact bilaterally, conjunctivae normal and no scleral icterus CONJUNCTIVA: Yes conjunctivae normal PUPIL: Yes Equal, round and reactive pupils present Neck/C-Spine: COMMON NORMALS: full ROM, no lymphadenopathy, supple, no meningeal signs and no JVD Chest: COMMONS NORMALS: normal inspection of the chest and normal palpation of entire chest wall Resp: COMMON NORMALS: normal respiratory effort, No retractions, No use of accessory muscles and clear to auscultation bilaterally AUSCULTATION: clear to auscultation bilaterally Cardio: COMMON NORMALS: no JVD, regular rate, regular rhythm, S1 normal heart sound present, S2 normal heart sound present, No gallops present (Cardio), No clicks present (Cardio), No murmurs present (Cardio) and No rub (Cardio) RATE: regular rate RHYTHM: regular rhythm HEART SOUNDS: S1 normal heart sound present and S2 normal heart sound present GI: COMMON NORMALS: Normal to inspection, nondistended, normoactive bowel sounds present, Soft to palpation, non-tender, No hepatosplenomegaly present and no masses PALPATION: Yes Soft to palpation and Yes No hepatosplenomegaly present Neuro: COMMON NORMALS: patient oriented x3 SENSORIUM/ORIENTATION: Yes alert MENINGEAL SIGNS: Yes no meningeal signs Skin: NARRATIVE SKIN EXAM: Abrasion noted to the left knee and 2.5 cm laceration to the left posterior superior scalp region. Procedures Laceration Laceration 1: Site: other (Scalp) Side (If applicable): left Size (cm): 2.5 Description: linear Depth: simple, single layer Local Anesthetic: lidocaine 1% Amount of anesthesia used (mL): 3 Pre-repair: wound explored Skin layer closed with: nylon Size (cm): 5-0 Number of sutures: 4 Technique: simple, interrupted Course Vital Signs: Vital signs: Vital Signs Temperature 98.9 F 10/22/22 20:21 Pulse Rate 81 10/22/22 20:21 Respiratory Rate 16 10/22/22 20:21 Blood Pressure 136/77 10/22/22 20:21 Pulse Oximetry 94 10/22/22 20:21 Oxygen Delivery Me thod Room Air 10/22/22 20:21 MDM - Wound/Laceration Medical Decision Making Patient presents with a fall and a head laceration on his left superior posterior scalp region. About 2.5 cm is clean and is linear bleeding is controlled. It is anesthetized with 1% lidocaine and sutured up with 5-0 nylon with no prior complications. Patient will be discharged home to follow-up in approximately 7 days for suture removal. Medical Records I reviewed the patient's medical records. Lab Data I reviewed the patient's lab results. Discharge Plan Discharge Patient Disposition: Home Clinical Impression: Laceration, Abrasion Condition: Stable Prescriptions: No Action prednisone 20 mg tablet 20 mg PO TID Qty: 15 0RF Rx Instructions: 1 p.o. 3 times daily x3 days, 1 p.o. twice daily x2 days, 1 p.o. daily x2 days albuterol sulfate 2.5 mg /3 mL (0.083 %) solution for nebulization 2.5 mg inhalation Q4H PRN (Reason: shortness of breath or wheezing) Qty: 90 0RF albuterol sulfate 2.5 mg /3 mL (0.083 %) solution for nebulization 2.5 mg inhalation TID doxycycline hyclate 100 mg capsule 100 mg PO BID 7 Days Qty: 14 0RF Discharge Orders: Discharge ED (Routine); Ordered 10/22/22 Ordered By: Paulie Serna Referrals: Pili Longo MD [Primary Care Provider] - 1 week Patient Instructions: Head Laceration (ED) Activity Restrictions/Additional Instructions: Please keep your wound clean and dry change dressing as needed. The sutures placed in the laceration will need to come out in approximately 7 days please feel free to follow-up with your primary care doctor or urgent care for this. Coding Level of Care Code ED Endoscopy Specialty Technician for David De La Garza
== END 2022-10-22 21:20 | disposition home or self-care (01) ==
PROVIDERS: Emergency Provider Emergency Medicine; PCP Family Medicine
DX: S01.01XA Laceration without foreign body of scalp, initial encounter (principal); S80.212A Abrasion, left knee, initial encounter; W19.XXXA Unspecified fall, initial encounter; Z59.00 Homelessness unspecified
CPT/HCPCS: 12001; 99282

== ENCOUNTER 2023-03-05 17:36 | Emergency (ER) | payer MEDICARE, MEDICAID, SELFPAY ==
[2023-03-05 17:37] VITALS: BP 88/60; PULSE 96; RESP 16; TEMP 37; O2SAT 97; BMI 35.2
--- NOTE | 2023-03-05 17:43 | XRR_ITS ---
PROCEDURE INFORMATION: Exam: XR Left Hand Exam date and time: 03/05/2023 5:48 PM Age: 62 years old Clinical indication: Other: Lt middle finger infection; Additional info: Wound infection 3rd digit TECHNIQUE: Imaging protocol: Radiologic exam of the left hand. Views: 3 or more views. COMPARISON: No relevant prior studies available. FINDINGS: Bones/joints: No acute fracture or other acute osseous abnormality. No osteolysis or periosteal reaction noted. Mild degenerative change of the interphalangeal joints. Soft tissues: Soft tissue swelling of the 3rd finger. No gas noted in the soft tissues. XR/XR hand LT min 3V* [id number] IMPRESSION: 1. Soft tissue swelling of the 3rd finger. No gas noted in the soft tissues. 2. No radiographic evidence of osteomyelitis.
--- NOTE | 2023-03-05 17:46 | W.ED.ANIMALB ---
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 Patient does have a history of diabetes mellitus which she controls with oral medications. Patient denies any other chronic medical problems or routine medicines. Patient appears nontoxic. Patient appears in no pain. Patient suspects that a spider bite. Review of Systems General: Reports: 10 or more systems reviewed and unremarkable except in HPI and below Card: Denies: chest pain Resp: Denies: dyspnea GI: Denies: nausea or vomiting Musc: Reports: extremity pain and extremity swelling (Left hand middle finger) PFS ED PFSH: Social History Smoking and tobacco/nicotine status: current every day tobacco/nicotine user Physical Exam Const: COMMON NORMALS: alert HENMT: COMMON NORMALS: normocephalic HEAD & SCALP: normocephalic MOUTH: Normal oral and palatal mucosa present Neck/C-Spine: COMMON NORMALS: full ROM Resp: COMMON NORMALS: normal respiratory effort and clear to auscultation bilaterally AUSCULTATION: clear to auscultation bilaterally Cardio: COMMON NORMALS: regular rate and regular rhythm RATE: regular rate RHYTHM: regular rhythm GI: COMMON NORMALS: non-tender Back/Pelvis: COMMON NORMALS: thoracic and lumbar spine normal to inspection Extremity: LEFT UPPER EXTREMITY: Yes hand & digits (Middle digit erythematous and swollen extending to the dorsal hand) Left hand and digits: Yes inspection, Yes palpation and Yes ROM Neuro: SENSORIUM/ORIENTATION: Yes alert Skin: WOUNDS: Yes wounds noted (Middle digit radial aspect of middle phalanx.) with surrounding erythema (With ecchymosis) Course Vital Signs: Vital signs: Vital Signs Temperature 98.6 F 03/05/23 17:37 Pulse Rate 96 03/05/23 17:37 Respiratory Rate 16 03/05/23 17:37 Blood Pressure 119/72 03/05/23 18:22 Pulse Oximetry 95 03/05/23 18:22 Oxygen Delivery Me thod Room Air 03/05/23 18:22 MDM - Animal Bite Medical Decision Making 62-year-old male patient comes in today with injury to the left hand. Patient believes he has a spider bite to the middle finger of the left hand. 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 Patient does have a history of diabetes mellitus type 2. Patient reports no nausea vomiting or fevers. Patient appears nontoxic. Patient has good range of motion of the finger. Differential diagnosis includes not limited to tenosynovitis, wound infection, local reaction insect bite, felon. X-ray of the finger and hand noted significant soft tissue swelling without gas or osteomyelitis. CBC showed a white blood cell count of 19.33. CMP had a sodium of 131, glucose 102. Lactate was 1.2. Sed rate was 71. CRP was 270. I reviewed this with Dr. Pickett who recommended patient be admitted for further treatment. I reviewed this with patient patient refused admission to hospital. Patient was written prescriptions for Augmentin and Bactrim DS. Patient was encouraged to follow-up with primary care. Patient left AMA. Lab Data 03/05/23 18:09 03/05/23 18:09 Radiology Impressions Hand X-Ray 03/05/23 17:43 IMPRESSION: 1. Soft tissue swelling of the 3rd finger. No gas noted in the soft tissues. 2. No radiographic evidence of osteomyelitis. Laboratory Results WBC 19.33 10^3/uL (3.29-11.43) H 03/05/23 18:09 RBC 5.08 10^6/uL (3.85-5.65) 03/05/23 18:09 Hgb 15.20 g/dL (11.27-16.99) 03/05/23 18:09 Hct 45.3 % (37-53) 03/05/23 18:09 MCV 89.2 fl (82-101) 03/05/23 18:09 MCH 29.9 pg (27-33) 03/05/23 18:09 MCHC 33.6 g/dL (30-55) 03/05/23 18:09 RDW 13.0 % (12.1-15.1) 03/05/23 18:09 Plt Count 299 10^3/cmm (157-399) 03/05/23 18:09 MPV 9.9 fL (7.4-10.4) 03/05/23 18:09 Neut % (Auto) 74.2 % 03/05/23 18:09 Lymph % (Auto) 14.9 % 03/05/23 18:09 [place] % (Auto) 10.1 % 03/05/23 18:09 Eos % (Auto) 0.1 % 03/05/23 18:09 Baso % (Auto) 0.3 % 03/05/23 18:09 Neut # (Auto) 14.36 10^3/uL (1.8-7.7) H 03/05/23 18:09 Lymph # (Auto) 2.9 10^3/uL (0.8-4.8) 03/05/23 18:09 [place] # (Auto) 2.0 10^3/uL (0.2-0.9) H 03/05/23 18:09 Eos # (Auto) 0.0 10^3/uL (0.0-0.8) 03/05/23 18:09 Baso # (Auto) 0.1 10^3/uL (0.0-0.1) 03/05/23 18:09 Nucleated RBC % (auto) 0 % 03/05/23 18:09 Nucleated RBCs # 0.0 /100WBC 03/05/23 18:09 ESR 71 mm/hr (0-10) H 03/05/23 18:09 Sodium 131 mmol/L (136-145) L 03/05/23 18:09 Potassium 3.7 mmol/L (3.5-5.1) 03/05/23 18:09 Chloride 95 mmol/L (98-107) L 03/05/23 18:09 Carbon Dioxide 24 mmol/L (22-29) 03/05/23 18:09 Anion Gap 15.7 (5-19) 03/05/23 18:09 BUN 12 mg/dL (8-23) 03/05/23 18:09 Creatinine 0.8 mg/dL (0.7-1.2) 03/05/23 18:09 GFR Calculation 98.6 mL/min (90-130) 03/05/23 18:09 Glucose 102 mg/dL (65-115) 03/05/23 18:09 Calculated Osmolality 272 mOsm/kg (285-295) L 03/05/23 18:09 Lactic Acid 1.2 mmol/L (0.5-2.2) 03/05/23 18:09 Calcium 9.4 mg/dL (8.5-10.5) 03/05/23 18:09 Total Bilirubin 0.3 mg/dL (0.15-1.2) 03/05/23 18:09 AST 15 U/L (0-40) 03/05/23 18:09 ALT 13 U/L (0-41) 03/05/23 18:09 Alkaline Phosphatase 92 U/L (40-130) 03/05/23 18:09 C-Reactive Protein 272.6 mg/L (0.0-4.9) H 03/05/23 18:09 Total Protein 7.3 g/dL (6.6-8.7) 03/05/23 18:09 Albumin 3.7 g/dL (3.5-5.2) 03/05/23 18:09 Globulin 3.6 g/dL (1.3-4.6) 03/05/23 18:09 All radiology interpretation(s) finalized by discharge Discharge Plan Discharge Patient Disposition: Left Against Medical Advice Clinical Impression: Abrasion of finger with infection Qualifiers: Encounter type: initial encounter Qualified Code(s): S60.419A - Abrasion of unspecified finger, initial encounter Condition: Stable Prescriptions: New amoxicillin-pot clavulanate 875-125 mg tablet 1 tab PO BID Qty: 14 0RF sulfamethoxazole-trimethoprim 800-160 mg tablet 1 tab PO DAILY 7 Days Qty: 14 0RF No Action prednisone 20 mg tablet 20 mg PO TID Qty: 15 0RF Rx Instructions: 1 p.o. 3 times daily x3 days, 1 p.o. twice daily x2 days, 1 p.o. daily x2 days albuterol sulfate 2.5 mg /3 mL (0.083 %) solution for nebulization 2.5 mg inhalation Q4H PRN (Reason: shortness of breath or wheezing) Qty: 90 0RF albuterol sulfate 2.5 mg /3 mL (0.083 %) solution for nebulization 2.5 mg inhalation TID Referrals: Pili Longo MD [Primary Care Provider] - Discharge Diet: Usual diet Discharge Activity: Increase activity as tolerated Patient Instructions: Wound Infection (ED) Activity Restrictions/Additional Instructions: Keep wound clean and dry. Elevate hand is much as possible. Follow-up with primary care in 2 to 3 days for recheck. Return to ER for worsening symptoms. Take antibiotics as directed. You are leaving this facility AGAINST MEDICAL ADVICE where we have recommended you being admitted for IV antibiotics and further care. Return to the facility if your symptoms worsen, you start running a really high fever, pain becomes unbearable, or new concerns. Coding Level of Care Code ED School Age Lead Teacher for David De La Garza
[2023-03-05] MEDS: ceFAZolin 2,000 MG in sodium chloride 0.9% (plus) 50 ML 100 MG IV (18:11)
[2023-03-05] MEDS: sodium chloride 0.9% 1,000 ML 999 ML IV (18:12)
[2023-03-05 18:17] LABS: Basophils # 0.1 10^3/uL (0.0-0.1); Basophils % 0.3 %; Eosinophils % 0.1 %; Hematocrit 45.3 % (37-53); Lymphocytes # 2.9 10^3/uL (0.8-4.8); Lymphocytes % 14.9 %; Mean Corpuscular HGB Conc 33.6 g/dL (30-55); Mean Corpuscular Hemoglobin 29.9 pg (27-33); Mean Corpuscular Volume 89.2 fl (82-101); Mean Platelet Volume 9.9 fL (7.4-10.4); Monocytes % 10.1 %; Neutrophils # 14.36 10^3/uL (1.8-7.7); Neutrophils % 74.2 %; Nucleated Red Blood Cells % 0 %; Platelet Count 299 10^3/cmm (157-399); Red Blood Count 5.08 10^6/uL (3.85-5.65); White Blood Count 19.33 10^3/uL (3.29-11.43)
[2023-03-05 18:22] VITALS: BP 119/72; O2SAT 95
[2023-03-05 18:33] LABS: Alanine Aminotransferase 13 U/L (0-41); Albumin Level 3.7 g/dL (3.5-5.2); Alkaline Phosphatase 92 U/L (40-130); Anion Gap 15.7 (5-19); Aspartate Amino Transferase 15 U/L (0-40); Blood Urea Nitrogen 12 mg/dL (8-23); C Reactive Protein 272.6 mg/L (0.0-4.9); Calcium 9.4 mg/dL (8.5-10.5); Carbon Dioxide 24 mmol/L (22-29); Chloride 95 mmol/L (98-107); Globulin 3.6 g/dL (1.3-4.6); Glomerular Filtration Rate 98.6 mL/min (90-130); Glucose 102 mg/dL (65-115); Osmolality Calculated 272 mOsm/kg (285-295); Potassium 3.7 mmol/L (3.5-5.1); Sodium 131 mmol/L (136-145); Total Bilirubin 0.3 mg/dL (0.15-1.2); Total Protein 7.3 g/dL (6.6-8.7)
[2023-03-05 18:34] LABS: Lactic Sepsis W/Reflex 1.2 mmol/L (0.5-2.2)
[2023-03-05 18:36] LABS: Erythrocyte Sedimentation Rate 71 mm/hr (0-10)
[2023-03-05] MEDS: clindamycin 600 MG/50 ML PREMIX 100 MG IV (18:45)
== END 2023-03-05 19:06 | disposition left against medical advice (07) ==
PROVIDERS: Emergency Provider Nurse Practitioner Family; PCP Family Medicine
DX: S60.419A Abrasion of unspecified finger, initial encounter (principal); Z53.29 Procedure and treatment not carried out because of patient's decision for other reasons; Z72.0 Tobacco use; E11.9 Type 2 diabetes mellitus without complications; Z79.84 Long term (current) use of oral hypoglycemic drugs; X58.XXXA Exposure to other specified factors, initial encounter
CPT/HCPCS: 36415; 73130; 80053; 83605; 85025; 85651; 86140; 87040; 96365; 96375; 99284; J0690; J3490; J7030

== ENCOUNTER 2023-03-06 16:59 | Observation (INO) | payer MEDICARE, MEDICAID, SELFPAY ==
[2023-03-06 17:42] VITALS: BP 102/67; PULSE 104; RESP 16; TEMP 36.6; O2SAT 100; BMI 26.2
--- NOTE | 2023-03-06 18:07 | CTR_ITS ---
PROCEDURE INFORMATION: Exam: CT Left Upper Extremity With Contrast, Hand Exam date and time: 03/06/2023 7:22 PM Age: 62 years old Clinical indication: Condition or disease; Edema of upper limb; Left; Additional info: Wound infection TECHNIQUE: Imaging protocol: Computed tomography of the left upper extremity with contrast. Exam focused on the hand. Radiation optimization: All CT scans at this facility use at least one of these dose optimization techniques: automated exposure control; mA and/or kV adjustment per patient size (includes targeted exams where dose is matched to clinical indication); or iterative reconstruction. Contrast material: OMNI 350; Contrast volume: 100 ml; Contrast route: INTRAVENOUS (IV); REPORTING DATA: Count of CT and Cardiac NM exams in prior 12 months: This patient has received 0 known CTs and 0 known cardiac nuclear medicine studies in the 12 months prior to the current study. COMPARISON: CR ([facility], ) 03/05/2023 5:48 PM RADIATION DOSE METRICS: Total DLP (mGy-cm): 127 FINDINGS: Bones/joints: Normal. No acute fracture or dislocation. No lytic or sclerotic bone lesion. No evidence of osteomyelitis. Soft tissues: Stranding of the subcutaneous fat of the hand and wrist, nonspecific in appearance. This could represent edema or infection. CT/CT hand LT w con [id number] IMPRESSION: 1[address] Un[address]able CT. 2. No drainable abscess.
--- NOTE | 2023-03-06 18:11 | ED_ITS ---
HPI - Skin/Abscess/Foreign Bdy General: Chief complaint: Skin/Abscess/Foreign Body Stated complaint: Spiter bite Time Seen by Provider: 03/06/23 18:01 History of Present Illness: 62-year-old male patient comes in today for increased pain and discomfort to the left hand. Patient was seen yesterday and was going to be admitted to hospital for cellulitis of the hand but did not want to stay. Patient was prescribed Augmentin and Bactrim for wound infection of the finger. Today patient comes back and hand appears increased redness and tenderness with movement of the wrist and hand. Cap refill is intact. Sensation is intact. Pulses are intact. Patient has a history of diabetes that he manages with oral medication that he cannot recall in diet. Review of labs from yesterday noted 19,000 white count, sed rate of 70, CRP of 270, lactate of 1.2, sodium 131. X-rays from yesterday noted soft tissue swelling without signs of gas in the soft tissue or osteomyelitis. Patient starts that the swelling started on Sunday after he noticed a wound/sore to the radial aspect of the middle finger on the left hand. Since then he has had increasing redness and swelling to the area. 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 Patient suspected that it may have been due to a spider bite. Patient does have a history of daily smoking cigarettes and tobacco. Denies alcohol or marijuana use. Associated symptoms: Deny chills, fever(s), nausea or vomiting Review of Systems General: Reports: 10 or more systems reviewed and unremarkable except in HPI and below Const: Denies: fever(s) or chills Card: Denies: chest pain Resp: Denies: dyspnea GI: Denies: nausea, vomiting, diarrhea or constipation : Denies: difficulty urinating Musc: Reports: extremity pain and extremity swelling Skin/Breast: Reports: new lesions (Abrasion third digit left hand) [facility] ED PFSH: Social History Smoking and tobacco/nicotine status: current every day tobacco/nicotine user Physical Exam Const: COMMON NORMALS: alert HENMT: COMMON NORMALS: normocephalic HEAD & SCALP: normocephalic Neck/C-Spine: COMMON NORMALS: full ROM Resp: COMMON NORMALS: normal respiratory effort and clear to auscultation bilaterally AUSCULTATION: clear to auscultation bilaterally Cardio: COMMON NORMALS: regular rate and regular rhythm RATE: regular rate RHYTHM: regular rhythm GI: COMMON NORMALS: Soft to palpation PALPATION: Yes Soft to palpation Back/Pelvis: COMMON NORMALS: thoracic and lumbar spine normal to inspection Extremity: NARRATIVE EXTREMITY EXAM: Patient has redness and swelling to the third digit of the left hand with that open wound noted to the radial aspect of the finger. Patient has increased pain with movement of the finger and exacerbating pain with range of motion at the wrist. RIGHT UPPER EXTREMITY: Yes hand & digits (Redness and swelling middle finger) Neuro: SENSORIUM/ORIENTATION: Yes alert Course ED course: 1829, reviewed patient with Dr. Pickett, attending ER physician, who recommended I consult Dr. Coppola, orthopedic on-call, regarding admission or further evaluatio n. Discussed patient with Dr. Coppola who recommended patient be seen with a hand surgeon in [place] for further evaluation and treatment. 1944, reviewed case with Dr. Teofilo Jones, orthopedic hand specialist, at [facility] in [place] he felt patient exam indicates more of a cellulitis and recomme nded admission to our hospital for further treatment. I reviewed this with Dr. Pickett he recommended I talk with hospitalist, Dr. Davenport. 2015, Dr. Davenport, hospitalist, agreed to place patient in observation status for cellulitis of the hand treatment with IV antibiotics. Vital Signs: Vital signs: Vital Signs Temperature 97.9 F 03/06/23 17:42 Pulse Rate 87 03/06/23 19:50 Respiratory Rate 16 03/06/23 17:42 Blood Pressure 130/78 03/06/23 19:50 Pulse Oximetry 100 03/06/23 19:50 Oxygen Delivery Me thod Room Air 03/06/23 19:50 MDM - Skin/Abscess/Foreign Bdy Medicial Decision Making 62-year-old male patient comes in today for increasing pain and discomfort to infection to the left hand. On exam we note increased pain and discomfort with range of motion at the wrist. Cap refill is intact. Vital signs are normal. Patient was seen yesterday but refused to be admitted, today the wound has not had any significant changes continues to be erythematous with some mild ecchymosis around it, increased redness and swelling to the dorsal hand, increased pain with movement at the wrist. Reports palmar pain, and lymphangitis to volar mid forearm. Differential diagnosis includes not limited to cellulitis, tenosynovitis, abscess, felon. CT of the hand was unremarkable except for soft tissue swelling and stranding. Laboratory values noted a white blood cell count of 19,000, sodium 136, glucose 121, and CRP of 323, and sed rate of 73. Patient was given 1 g of vancomycin and 1 g of cefepime. Patient replaced observation for antibiotics and reevaluation tomorrow. Lab Data 03/06/23 18:20 03/06/23 18:[address] 03/06/23 18:07 IMPRESSION: 1. Unremarkable CT. 2. No drainable abscess. Laboratory Results WBC 19.28 10^3/uL (3.29-11.43) H 03/06/23 18:20 RBC 4.92 10^6/uL (3.85-5.65) 03/06/23 18:20 Hgb 14.60 g/dL (11.27-16.99) 03/06/23 18:20 Hct 43.6 % (37-53) 03/06/23 18:20 MCV 88.6 fl (82-101) 03/06/23 18:20 MCH 29.7 pg (27-33) 03/06/23 18:20 MCHC 33.5 g/dL (30-55) 03/06/23 18:20 RDW 13.1 % (12.1-15.1) 03/06/23 18:20 Plt Count 307 10^3/cmm (157-399) 03/06/23 18:20 MPV 10.3 fL (7.4-10.4) 03/06/23 18:20 Neut % (Auto) 77.5 % 03/06/23 18:20 Lymph % (Auto) 11.8 % 03/06/23 18:20 [place]et % (Auto) 9.8 % 03/06/23 18:20 Eos % (Auto) 0.1 % 03/06/23 18:20 Baso % (Auto) 0.2 % 03/06/23 18:20 Neut # (Auto) 14.96 10^3/uL (1.8-7.7) H 03/06/23 18:20 Lymph # (Auto) 2.3 10^3/uL (0.8-4.8) 03/06/23 18:20 [place]et # (Auto) 1.9 10^3/uL (0.2-0.9) H 03/06/23 18:20 Eos # (Auto) 0.0 10^3/uL (0.0-0.8) 03/06/23 18:20 Baso # (Auto) 0.0 10^3/uL (0.0-0.1) 03/06/23 18:20 Nucleated RBC % (auto) 0 % 03/06/23 18:20 Nucleated RBCs # 0.0 /100WBC 03/06/23 18:20 ESR 73 mm/hr (0-10) H 03/06/23 18:20 Sodium 136 mmol/L (136-145) 03/06/23 18:20 Potassium 3.9 mmol/L (3.5-5.1) 03/06/23 18:20 Chloride 99 mmol/L (98-107) 03/06/23 18:20 Carbon Dioxide 25 mmol/L (22-29) 03/06/23 18:20 Anion Gap 15.9 (5-19) 03/06/23 18:20 BUN 15 mg/dL (8-23) 03/06/23 18:20 Creatinine 0.6 mg/dL (0.7-1.2) L 03/06/23 18:20 GFR Calculation 137.4 mL/min (90-130) H 03/06/23 18:20 Glucose 121 mg/dL (65-115) H 03/06/23 18:20 Calculated Osmolality 284 mOsm/kg (285-295) L 03/06/23 18:20 Lactic Acid 1.4 mmol/L (0.5-2.2) 03/06/23 18:20 Calcium 9.3 mg/dL (8.5-10.5) 03/06/23 18:20 Total Bilirubin 0.2 mg/dL (0.15-1.2) 03/06/23 18:20 AST 14 U/L (0-40) 03/06/23 18:20 ALT 14 U/L (0-41) 03/06/23 18:20 Alkaline Phosphatase 87 U/L (40-130) 03/06/23 18:20 C-Reactive Protein 323.5 mg/L (0.0-4.9) H 03/06/23 18:20 Total Protein 7.2 g/dL (6.6-8.7) 03/06/23 18:20 Albumin 3.5 g/dL (3.5-5.2) 03/06/23 18:20 Globulin 3.7 g/dL (1.3-4.6) 03/06/23 18:20 All radiology interpretation(s) finalized by discharge Discharge Plan Discharge Patient Disposition: Placed in Observation Clinical Impression: Cellulitis of hand Diabetes Qualifiers: Diabetes mellitus type: type 2 Diabetes mellitus terminologist insulin use: without custodial use Diabetes mellitus complication status: with skin complications Diabetes mellitus complication detail: with other skin complication Qualified Code(s): E11.628 - Type 2 diabetes mellitus with other skin complications Coding Level of Care Code ED Director Of [employer] for David De La Garza
[2023-03-06 18:30] LABS: Basophils % 0.2 %; Eosinophils % 0.1 %; Hematocrit 43.6 % (37-53); Lymphocytes # 2.3 10^3/uL (0.8-4.8); Lymphocytes % 11.8 %; Mean Corpuscular HGB Conc 33.5 g/dL (30-55); Mean Corpuscular Hemoglobin 29.7 pg (27-33); Mean Corpuscular Volume 88.6 fl (82-101); Mean Platelet Volume 10.3 fL (7.4-10.4); Monocytes # 1.9 10^3/uL (0.2-0.9); Monocytes % 9.8 %; Neutrophils # 14.96 10^3/uL (1.8-7.7); Neutrophils % 77.5 %; Nucleated Red Blood Cells % 0 %; Platelet Count 307 10^3/cmm (157-399); Red Blood Count 4.92 10^6/uL (3.85-5.65); Red Cell Distribution Width 13.1 % (12.1-15.1); White Blood Count 19.28 10^3/uL (3.29-11.43)
[2023-03-06 18:47] LABS: Alanine Aminotransferase 14 U/L (0-41); Albumin Level 3.5 g/dL (3.5-5.2); Alkaline Phosphatase 87 U/L (40-130); Anion Gap 15.9 (5-19); Aspartate Amino Transferase 14 U/L (0-40); Blood Urea Nitrogen 15 mg/dL (8-23); C Reactive Protein 323.5 mg/L (0.0-4.9); Calcium 9.3 mg/dL (8.5-10.5); Carbon Dioxide 25 mmol/L (22-29); Chloride 99 mmol/L (98-107); Globulin 3.7 g/dL (1.3-4.6); Glomerular Filtration Rate 137.4 mL/min (90-130); Glucose 121 mg/dL (65-115); Osmolality Calculated 284 mOsm/kg (285-295); Potassium 3.9 mmol/L (3.5-5.1); Sodium 136 mmol/L (136-145); Total Bilirubin 0.2 mg/dL (0.15-1.2); Total Protein 7.2 g/dL (6.6-8.7)
[2023-03-06 18:48] LABS: Lactic Sepsis W/Reflex 1.4 mmol/L (0.5-2.2)
[2023-03-06] MEDS: cefepime 1,000 MG in sodium chloride 0.9% (plus) 50 ML 100 MG IV (18:54)
[2023-03-06] MEDS: sodium chloride 0.9% 1,000 ML 999 ML IV (18:54)
[2023-03-06] MEDS: fentaNYL 50 mcg/mL INJ 2mL IVP (18:55)
[2023-03-06 18:58] VITALS: BP 112/89; PULSE 104; O2SAT 98
--- NOTE | 2023-03-06 18:58 | PC.NURSE ---
ASSUMED CARE AT 1840
[2023-03-06 19:00] VITALS: BP 116/70; PULSE 95; O2SAT 97
[2023-03-06] MEDS: iohexol 350 mg/mL 500 mL Btl (per mL) IV (19:14)
[2023-03-06 19:27] LABS: Erythrocyte Sedimentation Rate 73 mm/hr (0-10)
[2023-03-06] MEDS: vancomycin 1,000 MG in sodium chloride 0.9% 250 ML 250 MG IV (19:45)
[2023-03-06 19:50] VITALS: BP 130/78; PULSE 87; O2SAT 100
--- NOTE | 2023-03-06 20:39 | PM.HP ---
Providers/Chief Complaint Admitting Physician: Moncho Davenport MD Primary Care Provider: Pili Longo MD Chief Complaint: Spiter bite History of Present Illness Charbel Hood is a 62 year old male with a past medical history significant for type 2 diabetes mellitus, COPD, and tobacco use disorder who presents to the emergency room with left hand infection. Patient reports injury to the hand last Sunday. He reports he thinks a spider bit it. 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 Denies fevers or chills. He was evaluated yesterday in the emergency department with the same complaint. He was advised to be admitted for IV antibiotics but ultimately left AGAINST MEDICAL ADVICE. 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 He endorses associated symptoms of decreased function of his hand. Denies loss of sensation. Denies alleviating or aggravating factors. Rates pain a 7 out of 10. Review of Systems Narrative: A complete review of systems was obtained and is negative except as stated in HPI. Medications/Allergies Home Medications Medication Instructions Recorded Confirmed Last Taken Type albuterol sulfate 2.5 mg/3 mL 2.5 mg inhalation TID 10/17/22 10/17/22 Unknown History (0.083 %) solution for nebulization albuterol sulfate 2.5 mg/3 mL 2.5 mg (3 mL) inhalation Q4H PRN 10/20/22 Unknown Rx (0.083 %) solution for nebulization shortness of breath or wheezing #90 mL prednisone 20 mg tablet 20 mg PO TID #15 tabs 10/20/22 Unknown Rx amoxicillin 875 mg-potassium 1 tab PO BID #14 tabs 03/05/23 Unknown Rx clavulanate 125 mg tablet sulfamethoxazole 800 1 tab PO DAILY 7 days #14 tabs 03/05/23 Unknown Rx mg-trimethoprim 160 mg tablet Allergies Allergy/AdvReac Type Severity Reaction Status Date / Time No Known Allergies Allergy Verified 03/05/23 17:37 PFSH Acute PFSH: Medical History COPD (chronic obstructive pulmonary disease) Depression Diabetes Homeless Tobacco use disorder Type 2 diabetes mellitus Surgical History History of ear surgery Family History Father Cancer Mother Cancer Social History Smoking and tobacco/nicotine status: current every day tobacco/nicotine user Alcohol intake: unknown Substance/Drug Use: unknown Vitals/I&O/Wt Last Vital Signs Temp 97.9 F 03/06/23 17:42 Pulse 87 03/06/23 19:50 Resp 16 03/06/23 17:42 BP 130/78 03/06/23 19:50 Pulse Ox 100 03/06/23 19:50 O2 Del Method Room Air 03/06/23 19:50 03/06/23 03/06/23 03/06/23 06:59 14:59 22:59 Intake Total 1050 / 1050 Balance 1050 / 1050 Weight last 48 hrs Weight 75.75 kg Physical Exam Narrative: General: Patient is awake and alert. Head: Normocephalic. Atraumatic. Poor dentition. Neck: No JVD. Cardiovascular: RRR. No gallops. No murmurs. Lungs: Clear to auscultation, no use of accessory muscles, no crackles or wheezes. Skin: No jaundice. No rashes. Abdomen: Normal bowel sounds, abdomen soft and nontender. Genito Urinary: Genital exam not performed since complaints not related. Rectal: Rectal exam not performed since no symptoms indicated blood loss. Extremities: No cyanosis or clubbing. Musculoskeletal: Left hand with moderate swelling. Unable to completely close left hand. Capillary refill pulses are intact. There is associated erythema of the middle finger extending into the palmar region. Neurological: Moves all 4 extremities. No myoclonus. Data 03/06/23 18:20 03/06/23 18:20 Micro: Microbiology 03/06/23 18:23 Blood Culture - Preliminary Blood SPECIMEN COLLECTED 03/06/23 18:20 Blood Culture - Preliminary Blood SPECIMEN COLLECTED A&P Assessment and plan (1) Cellulitis of hand: CT imaging reviewed, no drainable abscess No sign of compartment syndrome on exam, continue to monitor Neurovascular checks Start IV antibiotics with vancomycin and ceftriaxone MRSA swab Advised elevation to above heart Analgesics as needed Supportive care (2) Type 2 diabetes mellitus: Sliding-scale insulin correction Avoid hypoglycemia (3) COPD (chronic obstructive pulmonary disease): Not in acute exacerbation Breathing treatments as needed (4) Tobacco use disorder: Would benefit from cessation Declined nicotine patch Plan DVT prophylaxis: Low risk, ambulatory. SCD. CODE STATUS: Full code Attestations Medical Necessity Statement*: Patient presents with significant cellulitis of the left hand requiring IV antibiotics to facilitate control of infection with expected hospitalization not to cross 2 midnights. Coding Level of Care Code Acute Code for [facility] Diagnoses Cellulitis of hand L03.119 Type 2 diabetes mellitus E11.9 COPD (chronic obstructive pulmonary disease) J44.9 Tobacco use disorder F17.200
[2023-03-06 20:41] LABS: Add Urine Microscopic? NO; Charge for UA Resulting for Rev
[2023-03-06 20:52] LABS: Bilirubin Urine Neg (Negative); Blood Urine Neg (Negative); Glucose Urine UA Norm (Normal); Ketones Urine Negative (Negative); Leukocyte Esterase Urine Negative (Negative); Nitrate Urine Negative (Negative); Protein Urine Neg (Negative); Urine Appearance Clear (CLEAR); Urine Color Colorless (Yellow); Urobilinogen Urine Neg (Negative); pH Urine 7 (5-7)
[2023-03-06 20:54] VITALS: BP 118/70; PULSE 85; RESP 17; TEMP 36.9; O2SAT 95
[2023-03-06] MEDS: HYDROcodone-acetaminophen 5-325 mg Tablet 1 TAB PO (22:04)
[2023-03-06] MEDS: cefTRIAXone 1,000 MG in sodium chloride 0.9% (plus) 50 ML 100 MG IV (22:04)
[2023-03-06 23:39] VITALS: BP 126/72; PULSE 69; RESP 15; TEMP 36.9; O2SAT 94
[2023-03-07] VITALS (9 sets, daily range): BP systolic 119–159; BP diastolic 63–79; PULSE 74–111; RESP 14–19; TEMP 36.7–38.2; O2SAT 92–98
[2023-03-07] MEDS: HYDROcodone-acetaminophen 5-325 mg Tablet 1 TAB PO ×3 (02:00→16:21)
[2023-03-07 04:54] LABS: Basophils # 0.1 10^3/uL (0.0-0.1); Basophils % 0.3 %; Eosinophils % 0.2 %; Hematocrit 44.2 % (37-53); Lymphocytes # 2.6 10^3/uL (0.8-4.8); Lymphocytes % 14.8 %; Mean Corpuscular HGB Conc 32.4 g/dL (30-55); Mean Corpuscular Hemoglobin 29.2 pg (27-33); Mean Corpuscular Volume 90.4 fl (82-101); Mean Platelet Volume 9.9 fL (7.4-10.4); Monocytes # 1.9 10^3/uL (0.2-0.9); Monocytes % 10.8 %; Neutrophils # 12.73 10^3/uL (1.8-7.7); Neutrophils % 73.3 %; Nucleated Red Blood Cells % 0 %; Platelet Count 317 10^3/cmm (157-399); Red Blood Count 4.89 10^6/uL (3.85-5.65); Red Cell Distribution Width 13.2 % (12.1-15.1); White Blood Count 17.39 10^3/uL (3.29-11.43)
[2023-03-07 05:12] LABS: Anion Gap 12.8 (5-19); Blood Urea Nitrogen 10 mg/dL (8-23); Calcium 8.9 mg/dL (8.5-10.5); Carbon Dioxide 27 mmol/L (22-29); Chloride 99 mmol/L (98-107); Glomerular Filtration Rate 169.6 mL/min (90-130); Glucose 121 mg/dL (65-115); Osmolality Calculated 280 mOsm/kg (285-295); Potassium 3.8 mmol/L (3.5-5.1); Sodium 135 mmol/L (136-145)
[2023-03-07 06:52] LABS: Glucose Point of Care 59 mg/dL (70-110)
--- NOTE | 2023-03-07 10:02 | PC.CHAP ---
Pastoral Care Encounter/Spiritual Assessment Type of Contact [] Declined bakery demonstrator visit [] Patient/Family/Request visit [] Outpatient visit [] Follow-up visit [] Physician referral [] Code/Alert [x] Routine visit [] Staff referral [] Actively dying [] Patient sleeping [] Family support [] [] Out of room [] Palliative care [] [] Receiving care in room [] Pre-surgical visit [] Trauma [] Long length of stay [] ICU visit [] Other: Relational/Emotional Strength [] Patient feels connected with others/family/visitors/staff [] Distress [] Loneliness/isolation [] Abandonment Spirituality of Patient [] Person of Kimberlee [] Attends Evangelical of their [place] [] Believes in Prayer [] Reads Bible or Restorationist materials [] There are Spiritual issues to be addressed Logging Assistant Interventions [x] Prayer [x] Active listening [] Non-anxious presence [] Spiritual/emotional support [] Crisis/trauma care [] Spiritual counseling [] Bereavement support [] Provided bereavement packet [] Provided Bible/devotional materials [] Provided toy/stuffed animal, coloring book to patient or family member [] Provided Communion [] Anointing/[place] [] Salvation [] Completed spiritual assessment [] Other: Impact on Illness or Injury [] Angry [] Fearful [] Anxious [] Often cries [] Exhaustion [] Unable to work [] Unable to attend advent [] Unable to walk/stand [] Unable to read [] Unable to drive [] Unable to eat/drink [] Unable to sleep [] Unable to be with family [] Patient intubated [] Other: Summary Time spent with patient 10 min
[2023-03-07 11:47] LABS: Glucose Point of Care 58 mg/dL (70-110)
[2023-03-07 12:18] LABS: Glucose Point of Care 68 mg/dL (70-110)
[2023-03-07 13:36] LABS: Glucose Point of Care 130 mg/dL (70-110)
--- NOTE | 2023-03-07 13:56 | PM.PN ---
Subjective Subjective: patient was seen this morning, he denies, any fever, no chills, does have increased left hand swelling, no drainange from location of spider bite, radial pulse present, spoke to Dr. Coppola, will have orthopedic service come by and have thier input, mri hand ordered Vitals/I&O/Wt Last Vital Signs Temp 98.1 F 03/07/23 12:21 Pulse 83 03/07/23 12:21 Resp 18 03/07/23 12:21 BP 132/79 03/07/23 12:21 Pulse Ox 98 03/07/23 12:21 O2 Del Method Room Air 03/07/23 12:21 03/06/23 03/07/23 03/07/23 22:59 06:59 14:59 Intake Total 1350 / 1350 960 / 960 Balance 1350 / 1350 960 / 960 Weight last 48 hrs Weight 75.807 kg Weight 75.807 kg Weight 75.75 kg Physical Exam Const: COMMON NORMALS: no acute distress and patient oriented x3 Resp: COMMON NORMALS: normal respiratory effort, No retractions, No use of accessory muscles and clear to auscultation bilaterally AUSCULTATION: clear to auscultation bilaterally Cardio: COMMON NORMALS: regular rate, regular rhythm, S1 normal heart sound present and S2 normal heart sound present RATE: regular rate RHYTHM: regular rhythm HEART SOUNDS: S1 normal heart sound present and S2 normal heart sound present GI: COMMON NORMALS: Normal to inspection, nondistended, normoactive bowel sounds present and non-tender Extremity: COMMON NORMALS: no pedal edema NARRATIVE EXTREMITY EXAM: left hand, 2nd digit, spider bite location, dry, no drainage, with swelling Neuro: COMMON NORMALS: patient oriented x3 Psych: COMMON NORMALS: mental status grossly normal Data 03/07/23 04:33 03/07/23 04:33 Micro: Microbiology 03/06/23 18:23 Blood Culture - Preliminary Blood SPECIMEN COLLECTED 03/06/23 18:20 Blood Culture - Preliminary Blood SPECIMEN COLLECTED A&P Assessment and plan (1) Cellulitis of hand: CT imaging reviewed, no drainable abscess No sign of compartment syndrome on exam, continue to monitor Neurovascular checks IV vancomycin and ceftriaxone MRSA swab Advised elevation to above heart Analgesics as needed Supportive care MRI hand orthopedic consulted (2) Type 2 diabetes mellitus: Sliding-scale insulin correction Avoid hypoglycemia (3) COPD (chronic obstructive pulmonary disease): Not in acute exacerbation Breathing treatments as needed (4) Tobacco use disorder: Would benefit from cessation Declined nicotine patch Plan DVT prophylaxis: Low risk, ambulatory. SCD. CODE STATUS: Full code Attestations Medical Necessity Statement*: patient requires hospitalization for cellulitis, spider bite, inpatient, greater than 2 midnight Diagnoses Cellulitis of hand L03.119 Type 2 diabetes mellitus E11.9 COPD (chronic obstructive pulmonary disease) J44.9 Tobacco use disorder F17.200
[2023-03-07] MEDS: vancomycin 1,250 MG/250 ML PIGGYBACK 250 MG IV (16:09)
--- NOTE | 2023-03-07 17:09 | PM.CONSULT ---
Providers/Reason For Consult Consulting Physician/Specialty*: Brendan Coppola DO/orthopedic surgery Reason for Consult*: Worsening left hand infection/middle finger Requesting Physician: Dr. Cam Attending Physician: Hector Cam MD Primary Care Provider: Pili Longo MD History of Present Illness History of Present Illness Charbel Hood is a 62 year old male presents emergency department and was admitted overnight secondary to left middle finger and hand cellulitis. Patient states he had a spider bite this past Sunday. States is progressively gotten worse. Patient initially was seen eval in the emergency department on 03/05/2023 at that point in time elected to go home and reviewing of medical record for emergency department patient left AMA did not want to be admitted. He subsequently presented the following day secondary to this worsening. He ended up being admitted as CT scan said there was no drainable abscess. I was consulted today for evaluation as patient's not improving on empiric antibiotics. Patient continues to complain of pain and worsening symptoms to his left middle finger and hand. Patient complains of fever denies any chills chest pain shortness of breath nausea or vomiting Review of Systems General: Reports: 10 or more systems reviewed and unremarkable except in HPI and below Medications/Allergies Home Medications Medication Instructions Recorded Confirmed Last Taken Type albuterol sulfate 2.5 mg/3 mL 2.5 mg inhalation TID 10/17/22 03/07/23 Unknown History (0.083 %) solution for nebulization amoxicillin 875 mg-potassium 1 tab PO BID #14 tabs 03/05/23 03/07/23 Unknown Rx clavulanate 125 mg tablet sulfamethoxazole 800 1 tab PO DAILY 7 days #14 tabs 03/05/23 03/07/23 Unknown Rx mg-trimethoprim 160 mg tablet Allergies Allergy/AdvReac Type Severity Reaction Status Date / Time No Known Allergies Allergy Verified 03/07/23 07:44 Current Medications Generic Name Dose Route Start Last Admin Trade Name Freq PRN Reason Stop Dose Admin Hydrocodone Bitart/Acetaminophen 1 tab 03/06/23 21:06 03/07/23 16:21 Hydrocodone-Acetaminophen 5-325 Mg Tablet PO 1 tab Q4H PRN Administration MODERATE PAIN Vancomycin/PEG/NADA/Lysine/Water 1,250 mg in 250 mls @ 250 mls/hr 03/07/23 16:00 03/07/23 16:09 Vancocin IV 250 mls/hr Q12H JACQUIE Administration Insulin Human Lispro 0 unit 03/07/23 08:00 03/07/23 12:01 Insulin Lispro 100 Unit/1 Ml SUBCUT Not Given TIDWM JACQUIE Protocol PFSH Acute PFSH: Medical History COPD (chronic obstructive pulmonary disease) Depression Diabetes Homeless Tobacco use disorder Type 2 diabetes mellitus Surgical History History of ear surgery Family History Father Cancer Mother Cancer Social History Smoking and tobacco/nicotine status: current every day tobacco/nicotine user Alcohol intake: unknown Substance/Drug Use: unknown Vitals/I&O/Wt Last Vital Signs Temp 100.7 F H 03/07/23 16:14 Pulse 80 03/07/23 16:14 Resp 19 H 03/07/23 16:14 BP 129/64 03/07/23 16:14 Pulse Ox 96 03/07/23 16:14 O2 Del Method Room Air 03/07/23 16:14 03/07/23 03/07/23 03/07/23 06:59 14:59 22:59 Intake Total 960 / 960 Balance 960 / 960 Weight last 48 hrs Weight 167 lb 2 oz Weight 167 lb 2 oz Weight 167 lb Physical Exam Narrative: Examination of the left hand: Examination of the left hand demonstrates patient has ulceration abrasion on the radial aspect of the middle finger the middle finger digit is significant fusiform swelling and sausage digit noted. He has significant tenderness to palpation along the flexor tendon sheath. Extreme tenderness to palpation over the A1 irene pain with passive extension and flexed posturing of the digit all 4 Knievel signs. Patient has no progressing erythema over the dorsal aspect of the hand with significant reactive edema I do appreciate palpable fluctuance throughout the left middle finger. There is significant erythema noted throughout this. Compartments to the left hand are soft and compressible no subcutaneous gas crepitus or bulla is noted. Patient sensations intact to light touch distally. Minimal range of motion of the left hand secondary to his pain and swelling. Const: COMMON NORMALS: no acute distress and average body habitus HENMT: COMMON NORMALS: normocephalic and atraumatic HEAD & SCALP: normocephalic and atraumatic Resp: COMMON NORMALS: normal respiratory effort and No retractions Data 03/07/23 04:33 03/07/23 04:33 Other Labs: WBC count 17.4, ESR 73, CRP 323 Micro: Microbiology 03/06/23 18:23 Blood Culture - Preliminary Blood SPECIMEN COLLECTED 03/06/23 18:20 Blood Culture - Preliminary Blood SPECIMEN COLLECTED Xray Ortho: Radiologist's impression: [facility] [address] [place] [id number] XRay Report Signed Patient: Charbel Hood Unit #: [id number] : 1960 Age/Sex: 62 / M ADM Date: 03/05/23 Loc: ER Room/Bed: Attending Dr: Ordering Provider/Ordering MD: Anjum Kay NP Date of Service: 03/05/23 Procedure(s): XR hand LT min 3V* [id number] Accession Number(s): [id number] Report Number: [id number] PROCEDURE INFORMATION: Exam: XR Left Hand Exam date and time: 03/05/2023 5:48 PM Age: 62 years old Clinical indication: Other: Lt middle finger infection; Additional info: Wound infection 3rd digit TECHNIQUE: Imaging protocol: Radiologic exam of the left hand. Views: 3 or more views. COMPARISON: No relevant prior studies available. FINDINGS: Bones/joints: No acute fracture or other acute osseous abnormality. No osteolysis or periosteal reaction noted. Mild degenerative change of the interphalangeal joints. Soft tissues: Soft tissue swelling of the 3rd finger. No gas noted in the soft tissues. XR/XR hand LT min 3V* [id number] IMPRESSION: 1. ? Soft tissue swelling of the 3rd finger. No gas noted in the soft tissues. 2. ? No radiographic evidence of osteomyelitis. ? [facility] [address] [place] [id number] Scan Report Signed Patient: Charbel Hood Unit #: [id number] : 1960 Age/Sex: 62 / M ADM Date: 03/06/23 Loc: ER Room/Bed: Attending Dr: Ordering Provider/Ordering MD: Anjum Kay NP Date of Service: 03/06/23 Procedure(s): CT hand LT w con [id number] Accession Number(s): [id number] Report Number: [id number] PROCEDURE INFORMATION: Exam: CT Left Upper Extremity With Contrast, Hand Exam date and time: 03/06/2023 7:22 PM Age: 62 years old Clinical indication: Condition or disease; Edema of upper limb; Left; Additional info: Wound infection TECHNIQUE: Imaging protocol: Computed tomography of the left upper extremity with contrast. Exam focused on the hand. Radiation optimization: All CT scans at this facility use at least one of these dose optimization techniques: automated exposure control; mA and/or kV adjustment per patient size (includes targeted exams where dose is matched to clinical indication); or iterative reconstruction. Contrast material: OMNI 350; Contrast volume: 100 ml; Contrast route: INTRAVENOUS (IV);? REPORTING DATA: Count of CT and Cardiac NM exams in prior 12 months: This patient has received 0 known CTs and 0 known cardiac nuclear medicine studies in the 12 months prior to the current study. COMPARISON: CR ([facility], ) 03/05/2023 5:48 PM RADIATION DOSE METRICS: Total DLP (mGy-cm): 127 FINDINGS: Bones/joints: Normal. No acute fracture or dislocation. No lytic or sclerotic bone lesion. No evidence of osteomyelitis. Soft tissues: Stranding of the subcutaneous fat of the hand and wrist, nonspecific in appearance. This could represent edema or infection. CT/CT hand LT w con [id number] IMPRESSION: 1. ? Unremarkable CT. 2. ? No drainable abscess. A&P Assessment and plan (1) Suppurative tenosynovitis of flexor tendon of left hand: (2) Cellulitis of hand: (3) Type 2 diabetes mellitus: (4) COPD (chronic obstructive pulmonary disease): (5) Tobacco use disorder: Plan Patient on IV antibiotics Internal medicine on board as primary X-rays reviewed CT scan reviewed Labs reviewed Patient has worsening left middle finger and hand infection findings consistent to left middle finger with purulent flexor tenosynovitis. At this point in time the significant infection that is noticeably worsening clinically he has not responded to IV antibiotics and at this point in time I do not feel as though this is an isolated cellulitis of the hand and more of a purulent infection of the left middle finger with noticeable reactive cellulitis edema into the hand. He has all 4 Knievel signs. This point in time would recommend this be transferred to orthopedic hand specialist for evaluation and likely surgical intervention as this Is not within the scope of my practice and Feel in the patient's best outcome would beFor transfer to orthopedic hand specialist. Discussed this with primary team and they will set up transfer. Thank you for allow me to partake in the care of this patient. Explained situation to patient he understands and agrees with current plan. All questions answered. Coding Level of Care Code Acute Code for g Fwd Diagnoses Suppurative tenosynovitis of flexor tendon of left hand M65.142 Cellulitis of hand L03.119 Type 2 diabetes mellitus E11.9 COPD (chronic obstructive pulmonary disease) J44.9 Tobacco use disorder F17.200 Time Spent (min) 45
[2023-03-07 17:19] LABS: Glucose Point of Care 100 mg/dL (70-110)
--- NOTE | 2023-03-07 17:26 | MRR_ITS ---
PROCEDURE INFORMATION: Exam: MR Left Upper Extremity Other Than Joint Without Contrast; Fingers Exam date and time: 03/07/2023 5:51 PM Age: 62 years old Clinical indication: Pain and injury or trauma; Fall and other: Spider bite; Additional info: Spider bite, worsening cellulitis TECHNIQUE: Imaging protocol: Magnetic resonance imaging of the left upper extremity without contrast. Exam focused on the fingers. COMPARISON: 1. MR hand LT wo con* [id number] 03/07/2023 5:[address] hand LT w con [id number] 03/06/2023 7:22 PM FINDINGS: Bones/joints: Circumscribed intraosseous ganglion cyst in the distal 5th metacarpal. The bones are otherwise intact and of normal signal. No joint effusion. Collateral ligaments of digits: Unremarkable. No evidence of tear. Flexor compartment tendons: Unremarkable. No evidence of tear. Extensor compartment tendons: Unremarkable. No evidence of tear. Soft tissues: Subcutaneous soft tissue edema in the dorsal and lateral left hand with extension into the 3rd through 5th fingers. Soft tissue fluid along the dorsal and lateral aspect of the distal 5th metacarpal and 5th metacarpophalangeal joint. MR/MR hand LT wo con* [id number] IMPRESSION: 1. No definite evidence for osteomyelitis. 2. Severe edema/cellulitis of the dorsal and lateral hand and 3rd through 5th fingers. 3. Soft tissue fluid is more prominent along the lateral and dorsal aspect of the distal 5th metacarpal and MCP joint. A soft tissue abscess can not be excluded. Sensitivity for detecting abscess is increased with IV contrast.
[2023-03-07] MEDS: ketorolac 30 mg/mL INJ 15 MG IVP (17:51)
[2023-03-07] MEDS: morphine 4 mg/mL SDV 1 mL 2 MG IVP (18:39)
--- NOTE | 2023-03-07 18:40 | PC.NURSE ---
MRI/Pain Management; HS and primary RN called down to [facility] MRI because of patient being anxious and agitated in the middle of an STAT MRI procedure. Patient wanting to leave AMA saying he is not going back in there {referring to MRI machine} and that he would just like to leave and go home. HS and primary RN educated on the importance of this scan and images to base future plan of care. Patient still insisted that he was going home and stated he didnt care if he lost his hand . After discussing with primary RN on what medications had been given prior to transport to MRI, HS then called Dr Cam to receive new telephone verbal med orders, and to update MD on patient current status and current want to leave. Dr Cam gave HS verbal orders to give 2mg IVP Morphine ONCE to help deescalate patient based off of pain levels, and to help with pain control, in hopes of compleing MRI scan. HS then went to ER, and overrode Morphine IVP out of pyxis. Med was pulled and prepared at ER med station in front of MIRIAM Quintero RN and wasted with her and with a second nurse witness of MIRIAM Cool RN. Med was manually verified by HS and given to patient in MRI location. Primary RN remains with patient at this time.
[2023-03-07] MEDS: LORazepam 2 mg/mL INJ 1 mL 1 MG IVP (19:10)
[2023-03-07] MEDS: piperacillin-tazobactam 3.375 GM in sodium chloride 0.9% (plus) 50 ML IV (19:58)
[2023-03-07 20:37] LABS: Glucose Point of Care 109 mg/dL (70-110)
--- NOTE | 2023-03-07 20:47 | PM.TDS ---
Transfer Summary Providers Date of Admission: 03/06/23 20:33 Date of Discharge/Transfer: 03/07/23 Attending Provider at Admission: Moncho Davenport MD Attending Provider at Transfer: Hector Cam MD Primary Care Provider: Pili Longo MD Transfer Plans: Anticipated date of transfer: 03/07/23. Diagnoses at Discharge Discharge Diagnosis (1) Suppurative tenosynovitis of flexor tendon of left hand: Status: Acute (2) Cellulitis of hand: Status: Acute (3) Type 2 diabetes mellitus: Status: Acute (4) COPD (chronic obstructive pulmonary disease): Status: Acute (5) Tobacco use disorder: Status: Acute Reason for Visit Reason for Visit Spiter bite Hospital Course Hospital Course Charbel Hood is a 62 year old male with a past medical history significant for type 2 diabetes mellitus, COPD, and tobacco use disorder who presents to the emergency room with left hand infection.? Patient reports injury to the hand last Sunday.? He reports he thinks a spider bit it.? 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 Denies fevers or chills.? He was evaluated yesterday in the emergency department with the same complaint.? He was advised to be admitted for IV antibiotics but ultimately left AGAINST MEDICAL ADVICE.? 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 He endorses associated symptoms of decreased function of his hand.? Denies loss of sensation.? Denies alleviating or aggravating factors.? Rates pain a 7 out of 10. Patient was admitted to [facility] for left hand cellulitis, received IV abx vancomycin and rocephin which was broadened to zosyn, was clinically monitored, due to worsening erythema/swelling/warmth and spread along dorsal and plantar aspect of hand, spreading down wrist, pain and limited range of motion on digit, worsening erythema and swelling at spider bite site at middle finger left hand and fever, orthopedic services was consulted, recommended transfer to tertiary center for surgical evaluation, transferred to [facility] in [place] for surgical evaluation, discussed with patient agrees with transfer HAND MRI showed MR/MR hand LT wo con* [id number] IMPRESSION: 1. No definite evidence for osteomyelitis. 2. Severe edema/cellulitis of the dorsal and lateral hand and 3rd through 5th fingers. 3. Soft tissue fluid is more prominent along the lateral and dorsal aspect of the distal 5th metacarpal and MCP joint.? A soft tissue abscess can not be excluded.? Sensitivity for detecting abscess is increased with IV contras Physical Exam Const: COMMON NORMALS: no acute distress and patient oriented x3 Resp: COMMON NORMALS: normal respiratory effort, No retractions, No use of accessory muscles and clear to auscultation bilaterally AUSCULTATION: clear to auscultation bilaterally Cardio: COMMON NORMALS: regular rate, regular rhythm, S1 normal heart sound present and S2 normal heart sound present RATE: regular rate RHYTHM: regular rhythm HEART SOUNDS: S1 normal heart sound present and S2 normal heart sound present GI: COMMON NORMALS: Normal to inspection, nondistended, normoactive bowel sounds present and non-tender Extremity: COMMON NORMALS: no pedal edema Neuro: COMMON NORMALS: patient oriented x3 Psych: COMMON NORMALS: mental status grossly normal TS Data Studies Completed and Pending Pending at discharge Category Date Time Status Blood Culture Stat Lab 03/06/23 18:23 Results MRSA [Methicillin Resistant S.aureu] Routine Lab 03/06/23 20:54 Received Vancomycin Trough Timed Lab 03/09/23 15:00 Ordered Completed Studies During Hospitalization Category Date Time Status CT hand LT w con [id number] Stat Cat Scan 03/06/23 18:07 Completed MR hand LT wo con* [id number] Stat MRI 03/07/23 17:26 Completed Laboratory Last Values WBC 17.39 10^3/uL (3.29-11.43) H 03/07/23 04:33 RBC 4.89 10^6/uL (3.85-5.65) 03/07/23 04:33 Hgb 14.30 g/dL (11.27-16.99) 03/07/23 04:33 Hct 44.2 % (37-53) 03/07/23 04:33 MCV 90.4 fl (82-101) 03/07/23 04:33 MCH 29.2 pg (27-33) 03/07/23 04:33 MCHC 32.4 g/dL (30-55) 03/07/23 04:33 RDW 13.2 % (12.1-15.1) 03/07/23 04:33 Plt Count 317 10^3/cmm (157-399) 03/07/23 04:33 MPV 9.9 fL (7.4-10.4) 03/07/23 04:33 Neut % (Auto) 73.3 % 03/07/23 04:33 Lymph % (Auto) 14.8 % 03/07/23 04:33 Lamar % (Auto) 10.8 % 03/07/23 04:33 Eos % (Auto) 0.2 % 03/07/23 04:33 Baso % (Auto) 0.3 % 03/07/23 04:33 Neut # (Auto) 12.73 10^3/uL (1.8-7.7) H 03/07/23 04:33 Lymph # (Auto) 2.6 10^3/uL (0.8-4.8) 03/07/23 04:33 Lamar # (Auto) 1.9 10^3/uL (0.2-0.9) H 03/07/23 04:33 Eos # (Auto) 0.0 10^3/uL (0.0-0.8) 03/07/23 04:33 Baso # (Auto) 0.1 10^3/uL (0.0-0.1) 03/07/23 04:33 Nucleated RBC % (auto) 0 % 03/07/23 04:33 Nucleated RBCs # 0.0 /100WBC 03/07/23 04:33 ESR 73 mm/hr (0-10) H 03/06/23 18:20 Sodium 135 mmol/L (136-145) L 03/07/23 04:33 Potassium 3.8 mmol/L (3.5-5.1) 03/07/23 04:33 Chloride 99 mmol/L (98-107) 03/07/23 04:33 Carbon Dioxide 27 mmol/L (22-29) 03/07/23 04:33 Anion Gap 12.8 (5-19) 03/07/23 04:33 BUN 10 mg/dL (8-23) 03/07/23 04:33 Creatinine 0.5 mg/dL (0.7-1.2) L 03/07/23 04:33 GFR Calculation 169.6 mL/min (90-130) H 03/07/23 04:33 Glucose 121 mg/dL (65-115) H 03/07/23 04:33 POC Glucose 109 mg/dL (70-110) 03/07/23 20:34 Calculated Osmolality 280 mOsm/kg (285-295) L 03/07/23 04:33 Lactic Acid 1.4 mmol/L (0.5-2.2) 03/06/23 18:20 Calcium 8.9 mg/dL (8.5-10.5) 03/07/23 04:33 Total Bilirubin 0.2 mg/dL (0.15-1.2) 03/06/23 18:20 AST 14 U/L (0-40) 03/06/23 18:20 ALT 14 U/L (0-41) 03/06/23 18:20 Alkaline Phosphatase 87 U/L (40-130) 03/06/23 18:20 C-Reactive Protein 323.5 mg/L (0.0-4.9) H 03/06/23 18:20 Total Protein 7.2 g/dL (6.6-8.7) 03/06/23 18:20 Albumin 3.5 g/dL (3.5-5.2) 03/06/23 18:20 Globulin 3.7 g/dL (1.3-4.6) 03/06/23 18:20 Urine Color Colorless (Yellow) 03/06/23 20:30 Urine Appearance Clear (CLEAR) 03/06/23 20:30 Urine pH 7 (5-7) 03/06/23 20:[address] 1.010 (1.005-1.030) 03/06/23 20:30 Urine Protein Neg (Negative) 03/06/23 20:30 Urine Glucose (UA) Norm (Normal) 03/06/23 20:30 Urine Ketones Negative (Negative) 03/06/23 20:30 Urine Blood Neg (Negative) 03/06/23 20:30 Urine Nitrate Negative (Negative) 03/06/23 20:30 Urine Bilirubin Neg (Negative) 03/06/23 20:30 Urine Urobilinogen Neg mg/dL (Negative) 03/06/23 20:30 Ur Leukocyte Esterase Negative (Negative) 03/06/23 20:[address] 03/06/23 18:07 IMPRESSION: 1. Unremarkable CT. 2. No drainable abscess. Hand MRI 03/07/23 17:26 IMPRESSION: 1. No definite evidence for osteomyelitis. 2. Severe edema/cellulitis of the dorsal and lateral hand and 3rd through 5th fingers. 3. Soft tissue fluid is more prominent along the lateral and dorsal aspect of the distal 5th metacarpal and MCP joint. A soft tissue abscess can not be excluded. Sensitivity for detecting abscess is increased with IV contrast. Recent Clincial Data Last Vital Signs Temp 98.6 F 03/07/23 19:49 Pulse 83 03/07/23 19:49 Resp 18 03/07/23 19:49 BP 120/63 03/07/23 19:49 Pulse Ox 92 03/07/23 19:49 O2 Del Method Room Air 03/07/23 19:48 Vital Signs Temp Pulse Resp BP Pulse Ox O2 Del Method 03/07/23 19:49 98.6 F 83 18 120/63 92 03/07/23 19:48 87 18 98 Room Air 03/07/23 18:39 19 H 03/07/23 16:14 100.7 F H 80 19 H 129/64 96 Room Air 03/07/23 12:21 98.1 F 83 18 132/79 98 Room Air 03/07/23 09:55 111 H 18 96 Room Air Intake & Output/Weight 03/05/23 03/06/23 03/07/23 03/08/23 06:59 06:59 06:59 06:59 Intake Total 1350 / 1350 2170 / 2170 Balance 1350 / 1350 2170 / 2170 Weight 75.807 kg Vitals Last Vital Signs Temp 98.6 F 03/07/23 19:49 Pulse 83 03/07/23 19:49 Resp 18 03/07/23 19:49 BP 120/63 03/07/23 19:49 Pulse Ox 92 03/07/23 19:49 O2 Del Method Room Air 03/07/23 19:48 TS Medications Medications Acetaminophen (Acetaminophen 500 Mg Tablet) 1,000 mg PO Q6H PRN PRN Reason: MILD PAIN OR INCREASE TEMP Hydrocodone Bitart/Acetaminophen (Hydrocodone-Acetaminophen 5-325 Mg Tablet) 1 tab PO Q4H PRN PRN Reason: MODERATE PAIN Last Admin: 03/07/23 16:21 Dose: 1 tab Albuterol Sulfate (Albuterol 2.5 Mg/3 Ml Neb) 2.5 mg INHALATION Q4H.RESPIRATORY PRN PRN Reason: SHORTNESS OF BREATH Dextrose (Dextrose 50% Syringe 50 Ml) 25 ml IVP ONCE PRN; Protocol PRN Reason: hypoglycemia protocol Dextrose (Dextrose 50% Syringe 50 Ml) 50 ml IVP PRN PRN; Protocol PRN Reason: hypoglycemia protocol Dextrose (D5w) 500 mls @ 0 mls/hr IV ONCE PRN; Protocol PRN Reason: Adult Acute Hypoglycemia Prot Piperacillin Sod/Tazobactam (Sod 3.375 gm/ Sodium Chloride) 50 mls @ 12.5 mls/hr IV Q8H [facility] Last Admin: 03/07/23 19:58 Dose: 12.5 mls/hr Vancomycin/PEG/NADA/Lysine/Water (Vancocin) 1,250 mg in 250 mls @ 250 mls/hr IV Q12H [facility] Last Infusion: 03/07/23 19:28 Dose: Infused Insulin Human Lispro (Insulin Lispro 100 Unit/1 Ml) 0 unit SUBCUT TIDWM [facility]; Protocol Last Admin: 03/07/23 19:28 Dose: Not Given Ketorolac Tromethamine (Ketorolac 30 Mg/Ml Inj) 15 mg IVP Q6H PRN PRN Reason: MODERATE PAIN Stop: 03/11/23 20:53 Last Admin: 03/07/23 17:51 Dose: 15 mg Ondansetron HCl (Ondansetron 4 Mg Tablet) 4 mg PO Q8H PRN PRN Reason: NAUSEA Discontinued Medications Fentanyl (Fentanyl 50 Mcg/Ml Inj 2ml) 50 mcg IVP ONCE ONE Stop: 03/06/23 18:18 Last Admin: 03/06/23 18:55 Dose: 50 mcg Vancomycin HCl 1,000 mg/ (Sodium Chloride) 250 mls @ 250 mls/hr IV ONCE ONE; Protocol Stop: 03/06/23 19:03 Last Infusion: 03/06/23 21:11 Dose: Infused Sodium Chloride (Sodium Chloride 0.9%) 1,000 mls @ 999 mls/hr IV .Q1H1M ONE Stop: 03/06/23 19:10 Last Infusion: 03/06/23 20:36 Dose: Infused Cefepime HCl 1,000 mg/ Sodium (Chloride) 50 mls @ 100 mls/hr IV ONCE ONE; Protocol Stop: 03/06/23 18:39 Last Infusion: 03/06/23 19:45 Dose: Infused Ceftriaxone Sodium 1,000 mg/ (Sodium Chloride) 50 mls @ 100 mls/hr IV Q24H JACQUIE; Protocol Last Infusion: 03/06/23 22:41 Dose: Infused Vancomycin HCl / Sodium (Chloride) 250 mls @ 0 mls/hr [id number] PROTOCOL JACQUIE; Protocol Piperacillin Sod/Tazobactam (Sod / Sodium Chloride) 50 mls @ 0 mls/hr [id number] JACQUIE; Protocol Iohexol (Iohexol 350 Mg/Ml 500 Ml Btl (Per Ml)) 0 ml IV ONCE ONE Stop: 03/06/23 19:15 Last Admin: 03/06/23 19:14 Dose: 100 ml Lorazepam (Lorazepam 2 Mg/Ml Inj 1 Ml) Confirm Administered Dose 2 mg .ROUTE .STK-MED ONE Stop: 03/07/23 18:59 Last Admin: 03/07/23 19:56 Dose: Not Given Morphine Sulfate (Morphine 4 Mg/Ml Sdv 1 Ml) 2 mg IVP ONCE ONE Stop: 03/07/23 18:32 Last Admin: 03/07/23 18:39 Dose: 2 mg Morphine Sulfate (Morphine 4 Mg/Ml Sdv 1 Ml) Confirm Administered Dose 4 mg .ROUTE .STK-MED ONE Stop: 03/07/23 18:33 Allergies No Known Allergies Allergy (Verified 03/07/23 07:44) Home Medications albuterol sulfate 2.5 mg/3 mL (0.083 %) solution for nebulization 2.5 mg inhalation TID 10/17/22 [History Confirmed 03/07/23] amoxicillin 875 mg-potassium clavulanate 125 mg tablet 1 tab PO BID #14 tabs 03/05/23 [Rx Confirmed 03/07/23] sulfamethoxazole 800 mg-trimethoprim 160 mg tablet 1 tab PO DAILY 7 days #14 tabs 03/05/23 [Rx Confirmed 03/07/23] Discharge Plan Discharge Condition: Stable Prescriptions: No Action amoxicillin-pot clavulanate 875-125 mg tablet 1 tab PO BID Qty: 14 0RF sulfamethoxazole-trimethoprim 800-160 mg tablet 1 tab PO DAILY 7 Days Qty: 14 0RF albuterol sulfate 2.5 mg /3 mL (0.083 %) solution for nebulization 2.5 mg inhalation TID Referrals: Pili Longo MD [Primary Care Provider] - Patient Instructions: Opioid Safety Transfer Attestations Time Spent in Transfer Care: greater than 30 min Quality Metrics Clinical Quality Measures [ No reported AMI, CVA or VTE this stay] Coding Level of Care Code Acute Code for Chg Fwd Diagnoses Suppurative tenosynovitis of flexor tendon of left hand M65.142 Cellulitis of hand L03.119 Type 2 diabetes mellitus E11.9 COPD (chronic obstructive pulmonary disease) J44.9 Tobacco use disorder F17.200
--- NOTE | 2023-03-07 21:48 | PC.NURSE ---
Report called to Lavell Wright RN at [facility] at 2030. EMS arrived to transfer pt at 2148. All belongings sent with patient.
--- NOTE | 2023-03-08 00:54 | PC.NURSE ---
At 18:55 on 03/07/23 received a call from [facility] that the pt was agitated and not holding still for MRI. This nurse and Dr. Cam went to MRI to speak with the patient and reiterated the importance of lying still in order to get the best pictures possible of hand. Pt verbalized understanding but would move ever so often. Verbal order of Ativan 1mg IVP X1 now given from Dr. Cam. This nurse came to the floor and removed medication from the pyxis, went back down to MRI, nitish up the medication in front of Dr. Cam and administered to the patient using 2 patient identifiers. The remaining 1mg of medication was brought back and wasted with ALAYNA Stewart.
[2023-03-09 14:54] LABS: Methicillin-Resist S.aureu PCR NOT DETECTED (NOT DETECTED)
== END 2023-03-07 21:50 | disposition other institution (70) ==
LOC: ER 20:12 → MEDSURG 22:24
PROVIDERS: Admitting Provider Internal Medicine; Emergency Provider Nurse Practitioner Family; PCP Family Medicine; Visit Provider Family Medicine
DX: M65.142 Other infective (teno)synovitis, left hand (principal); L03.119 Cellulitis of unspecified part of limb; E11.9 Type 2 diabetes mellitus without complications; J44.9 Chronic obstructive pulmonary disease, unspecified; F17.200 Nicotine dependence, unspecified, uncomplicated; Z91.199 Patient's noncompliance with other medical treatment and regimen due to unspecified reason
CPT/HCPCS: 36415; 36416; 73201; 73218; 80048; 80053; 81003; 82962; 83605; 85025; 85651; 86140; 87040; 87077; 87186; 87641; 96365; 96367; 96375; 99285; G0378; J0692; J0696; J1885; J2060; J2270; J2543; J3010; J3370; J7030; J7050; Q9967

== ENCOUNTER 2023-03-16 17:32 | Emergency (ER) | payer MEDICARE, MEDICAID, SELFPAY ==
[2023-03-16 18:06] VITALS: BP 126/50; PULSE 74; RESP 16; TEMP 36.7; O2SAT 97; BMI 24.5
--- NOTE | 2023-03-16 19:17 | ED_ITS ---
HPI - General Adult General: Chief complaint: General Medical Stated complaint: left finger pain possible cellulitis Time Seen by Provider: 03/16/23 18:52 Source: patient Mode of arrival: ambulatory Limitations: no limitations History of Present Illness: 62-year-old male that had had a spider bite to his left middle finger and had surgery on it at [facility] 5 days ago he states finger is doing much improved he states that he ran out of his pain meds and states he needs a refill for his pain meds he is currently on antibiotics has a follow-up with his hand surgeon next week and denies any fevers. Associated symptoms: Deny chest pain, dyspnea, headache(s), nausea, rash or vomiting Review of Systems Const: Denies: fever(s) or chills ENMT: Denies: throat pain or dental pain Card: Denies: chest pain Resp: Denies: dyspnea GI: Denies: abdominal pain, nausea, vomiting or diarrhea Musc: Reports: extremity pain; Denies: neck pain or back pain Skin/Breast: Denies: rash Neuro: Denies: headache(s) PFSH ED PFSH: Medical History COPD (chronic obstructive pulmonary disease) Depression Diabetes Homeless Tobacco use disorder Type 2 diabetes mellitus Surgical History History of ear surgery Family History Father Cancer Mother Cancer Social History Smoking and tobacco/nicotine status: current every day tobacco/nicotine user Alcohol intake: unknown Substance/Drug Use: unknown Physical Exam Const: COMMON NORMALS: no acute distress and patient oriented x3 HENMT: COMMON NORMALS: atraumatic HEAD & SCALP: atraumatic Eye: COMMON NORMALS: conjunctivae normal CONJUNCTIVA: Yes conjunctivae normal Chest: COMMONS NORMALS: normal inspection of the chest Resp: COMMON NORMALS: normal respiratory effort Extremity: OTHER: Sutures in place to left middle finger no erythema no drainage minimal swelling Neuro: COMMON NORMALS: patient oriented x3 Course Vital Signs: Vital signs: Vital Signs Temperature 98.1 F 03/16/23 18:06 Pulse Rate 74 11/24/23 18:06 Respiratory Rate 16 03/16/23 18:06 Blood Pressure 126/50 03/16/23 18:06 Pulse Oximetry 97 03/16/23 18:06 Oxygen Delivery Me thod Room Air 03/16/23 18:06 MDM - General Adult Medical Decision Making Patient presents here for medication refill along with finger pain he has no signs of infection he is continue his antibiotics follow-up with hand surgeon he is stable for discharge. No radiology studies performed this visit Discharge Plan Discharge Patient Disposition: Home Clinical Impression: Finger pain Condition: Stable Prescriptions: New hydrocodone-acetaminophen 5-325 mg tablet 1 tab PO Q6H PRN (Reason: pain) Qty: 14 0RF No Action amoxicillin-pot clavulanate 875-125 mg tablet 1 tab PO BID Qty: 14 0RF albuterol sulfate 2.5 mg /3 mL (0.083 %) solution for nebulization 2.5 mg inhalation TID Discharge Orders: Discharge ED (Routine); Ordered 03/16/23 Ordered By: Idalia Pickett Referrals: Pili Longo MD [Primary Care Provider] - Discharge Diet: Advance as tolerated Discharge Activity: Resume usual activity Patient Instructions: Arm Pain (ED), Opioid Safety Coding Level of Care Code ED Expressive Art Therapist for Chg Holli
[2023-03-16] MEDS: HYDROcodone-acetaminophen 5-325 mg Tablet 2 TAB PO (19:30)
== END 2023-03-16 19:37 | disposition home or self-care (01) ==
PROVIDERS: Emergency Provider Emergency Medicine; PCP Family Medicine
DX: M79.645 Pain in left finger(s) (principal); Z72.0 Tobacco use; J44.9 Chronic obstructive pulmonary disease, unspecified; E11.9 Type 2 diabetes mellitus without complications
CPT/HCPCS: 99283

== ENCOUNTER 2023-04-11 18:07 | Emergency (ER) | payer MEDICARE, MEDICAID, SELFPAY ==
[2023-04-11 18:11] VITALS: BP 115/72; PULSE 103; RESP 20; TEMP 36.8; O2SAT 98; BMI 25.0
--- NOTE | 2023-04-11 18:26 | ED_ITS ---
HPI - Skin/Abscess/Foreign Bdy General: Chief complaint: Skin/Abscess/Foreign Body Stated complaint: ems Celulititis L hand Time Seen by Provider: 04/11/23 18:20 History of Present Illness: 62-year-old male patient comes in today with some concerns of discoloration to the left middle finger. Patient has decreased range of motion and mild discoloration to the finger. Patient has a history of tenosynovitis to that finger which she had to have surgically irrigated 1 month ago. Wound seems to a bit healed. Patient has decreased range of motion to the finger, prompt capillary refill, and normal sensation. Associated symptoms: Deny fever(s) or vomiting Review of Systems General: Reports: 10 or more systems reviewed and unremarkable except in HPI and below Const: Denies: fever(s) Card: Denies: chest pain Resp: Denies: dyspnea GI: Denies: vomiting : Denies: difficulty urinating Musc: Reports: extremity swelling (Left middle finger swelling.) [facility] ED PFSH: Medical History COPD (chronic obstructive pulmonary disease) Depression Diabetes Homeless Tobacco use disorder Type 2 diabetes mellitus Surgical History History of ear surgery Family History Father Cancer Mother Cancer Social History Smoking and tobacco/nicotine status: current every day tobacco/nicotine user Alcohol intake: unknown Substance/Drug Use: unknown Physical Exam Const: COMMON NORMALS: alert HENMT: COMMON NORMALS: normocephalic HEAD & SCALP: normocephalic Neck/C-Spine: COMMON NORMALS: full ROM Resp: COMMON NORMALS: normal respiratory effort Cardio: COMMON NORMALS: regular rate RATE: regular rate GI: COMMON NORMALS: non-tender Back/Pelvis: COMMON NORMALS: thoracic and lumbar spine normal to inspection Extremity: LEFT UPPER EXTREMITY: Yes hand & digits (Middle finger some discoloration, good blanching, prompt cap refill) Left hand and digits: Yes inspection, Yes palpation, Yes ROM and Yes neurovascular exam Neuro: SENSORIUM/ORIENTATION: Yes alert Course Vital Signs: Vital signs: Vital Signs Temperature 98.3 F 12/20/23 18:11 Pulse Rate 103 H 04/11/23 18:11 Respiratory Rate 20 H 04/11/23 18:11 Blood Pressure 115/72 04/11/23 18:11 Pulse Oximetry 98 04/11/23 18:11 Oxygen Delivery Me thod Room Air 04/11/23 18:11 MDM - Skin/Abscess/Foreign Bdy Medicial Decision Making Patient comes in for discoloration to the middle finger of the left hand. Patient appears nontoxic. Patient has some decreased range of motion to the finger. Patient has some mild discoloration but finger blanches and returns to normal. Range of motion is due to arthritis. Differential diagnosis includes not limited to Buerger's disease, Raynaud's phenomena, skin changes from chronic infection, cellulitis. No signs of acute illness. Patient does smoke cigar ettes and may have some Buerger's disease causing this discoloration to the finger but at this time there is no sign of an occlusive event and patient does have cap refill return to normal color. Suspect that more likely the finger discoloration is secondary to the significant swelling from the wound infection that patient had prior to treatment for his tenosynovitis. No radiology studies performed this visit Discharge Plan Discharge Patient Disposition: Home Clinical Impression: Arthritis of finger of left hand Condition: Stable Prescriptions: No Action amoxicillin-pot clavulanate 875-125 mg tablet 1 tab PO BID Qty: 14 0RF hydrocodone-acetaminophen 5-325 mg tablet 1 tab PO Q6H PRN (Reason: pain) Qty: 14 0RF albuterol sulfate 2.5 mg /3 mL (0.083 %) solution for nebulization 2.5 mg inhalation TID Discharge Orders: Discharge ED (Routine); Ordered 04/11/23 Ordered By: Anjum Kay Referrals: Pili Longo MD [Primary Care Provider] - Discharge Diet: Usual diet Discharge Activity: Increase activity as tolerated Activity Restrictions/Additional Instructions: Follow-up with primary care. Return to ER for high fever, increasing redness and swelling of finger, or new concerns. Coding Level of Care Code ED Scholastic Aptitude Test Grader for David De La Garza
== END 2023-04-11 18:37 | disposition home or self-care (01) ==
PROVIDERS: Emergency Provider Nurse Practitioner Family; PCP Family Medicine
DX: M13.842 Other specified arthritis, left hand (principal); J44.9 Chronic obstructive pulmonary disease, unspecified; E11.9 Type 2 diabetes mellitus without complications; Z72.0 Tobacco use
CPT/HCPCS: 99281

== ENCOUNTER 2023-05-16 07:03 | Outpatient (CLI) | payer MEDICARE, MEDICAID, SELFPAY ==
--- NOTE | 2023-05-16 07:09 | MR_ITS ---
WS: [id number] MRI LEFT HAND, WITH AND WITHOUT CONTRAST. COMPARISON: 03/07/2023. Radiograph 04/18/2023 Multiplanar, multisequence imaging is performed with and without contrast. Persistent soft tissue edema within the hand is predominantly centered around the third, fourth and f ifth distal metacarpals and fingers. There is no focal soft tissue collection. There is enhancement s urrounding the third metacarpal head and extending into the third metacarpal phalangeal joint and dis tally along the flexor tendon sheath of the third finger. No osteomyelitis or fracture is evident. Th ere is a small subchondral cyst or erosion involving the third and fifth metacarpal heads. Markedly abnormal appearance of the flexor tendon sheath of the third finger involving both the profu ndus and digitorum superficialis portion of the tendon. There is loss of the normal morphology of the tendon. There is displacement of the tendon from the volar aspect of the metacarpal. Abnormal signal extends proximally to the mid third metacarpal. There is mild enhancement. Normal volar plates are n ot identified of the third finger. IMPRESSION: 1. Persistent soft tissue edema involving predominantly the volar aspect of the third, fourth and fi fth distal metacarpals and phalanges. There is mild enhancement within the soft tissues greatest surr ounding the third metacarpal head and into the third metacarpal phalangeal joint and along the flexor tendon sheath. Although no abscess is identified the enhancement is concerning for cellulitis and po ssible synovitis. Joint infection should be of concern at the third metacarpophalangeal joint. 2. Abnormal morphology of the flexor tendon sheath involving both the superficialis and the profundu s tendons of the third finger. Loss of the normal signal and displacement from the bone suggesting ad vanced tenosynovitis and injury to the irene system. Normal tendon is not identified. Suspect this t endon may be torn and retracted to the mid third metacarpal. 3. Recommend reevaluation by hand surgeon.
[2023-05-16] MEDS: gadobenate dimeglumine 20 mL vial IV (08:01)
== END 2023-05-16 07:04 | disposition home or self-care (01) ==
LOC: RAD 07:04
PROVIDERS: PCP Family Medicine; Visit Provider Family Medicine
DX: R93.6 Abnormal findings on diagnostic imaging of limbs (principal); M01.X0 Direct infection of unspecified joint in infectious and parasitic diseases classified elsewhere; R60.0 Localized edema
CPT/HCPCS: 73220; A9577

== ENCOUNTER 2023-09-27 06:00 | Outpatient (RCR) | payer MEDICARE, MEDICAID, SELFPAY | END 2023-10-21 23:59 | disposition home or self-care (01) | LOC: TPT 06:00 | PROVIDERS: Visit Provider Family Medicine | DX: M01.X0 Direct infection of unspecified joint in infectious and parasitic diseases classified elsewhere (principal) | CPT/HCPCS: 97110; 97140; 97162 ==

== ENCOUNTER 2024-09-15 04:47 | Emergency (ER) | payer OTHER, MEDICAID, SELFPAY ==
[2024-09-15 04:48] VITALS: BP 124/58; PULSE 77; RESP 22; TEMP 36.4; O2SAT 100; BMI 29.0
[2024-09-15 04:55] VITALS: BP 124/58; PULSE 82; RESP 18; O2SAT 100
--- NOTE | 2024-09-15 04:55 | ECG_ITS ---
[facility] 2024[facility]15 Pat Name: Charbel Hood Department: Room: Gender: Male Visual Artist: : 1960 Requested By: Chan Rivera Order Number: [id number] Stephane MD: CASSY FELDER Measurements Intervals [place] Rate: 71 P: 63 SD: 173 QRS: 56 QRSD: 124 T: 69 QT: 413 QTc: 449 Interpretive Statements SINUS RHYTHM WITH SINUS ARRHYTHMIA POSSIBLE RIGHT VENTRICULAR CONDUCTION DELAY [RSR (QR) IN V1/V2] Compared to ECG 10/20/2022 06:08:09 Ventricular premature complex(es) no longer present Electronically Signed On 09-15-2024 19:03:32 CDT by CASSY FELDER [id number]
--- NOTE | 2024-09-15 05:05 | XRR_ITS ---
PROCEDURE INFORMATION: Exam: XR Chest Exam date and time: 09/15/2024 5:06 AM Age: 63 years old Clinical indication: Shortness of breath; C/O SOB. History of copd. TECHNIQUE: Imaging protocol: Radiologic exam of the chest. Views: 1 view. COMPARISON: CR XR chest 1V portable [id number] 10/20/2022 6:30 AM FINDINGS: Lungs: Unremarkable. No consolidation. Pleural spaces: Unremarkable. No pleural effusion. No pneumothorax. Heart/Mediastinum: Unremarkable. No cardiomegaly. Bones/joints: Remote right rib fractures. Remote right clavicle fracture. XR/XR chest 1V portable [id number] IMPRESSION: No acute findings.
--- NOTE | 2024-09-15 05:25 | W.ED.SOB ---
HPI - SOB/Dyspnea General: Chief Complaint: Shortness of Breath/Dyspnea Stated Complaint: RESP. DISTRESS Time Seen by Provider: 09/15/24 04:54 History of Present Illness: HPI Narrative: Patient presents with complaints of breathing difficulties that have been ongoing throughout the day. Reports feeling shaky and experiencing a headache. Patient has a history of GERD since 2007. Denies using home oxygen regularly but mentions having a new oxygen device. Patient reports coughing and states that symptoms worsen with movement. Patient has been prescribed nebulizer treatments but indicates difficulty with proper administration due to missing equipment components. Reports some improvement with nebulizer treatment administered by EMS, though notes experiencing shakiness as a side effect. Related Data Home Medications ?Medication ?Instructions ?Recorded ?Confirmed albuterol sulfate 2.5 mg/3 mL 2.5 mg inhalation TID 10/17/22 03/07/23 (0.083 %) solution for nebulization Previous Rx's ?Medication ?Instructions ?Recorded amoxicillin 875 mg-potassium 1 tab PO BID #14 tabs 03/05/23 clavulanate 125 mg tablet hydrocodone 5 mg-acetaminophen 325 1 tab PO Q6H PRN pain #14 tabs 03/16/23 mg tablet Allergies Allergy/AdvReac Type Severity Reaction Status Date / Time No Known Allergies Allergy Verified 04/11/23 18:16 Review of Systems General: Reports: 10 or more systems reviewed and unremarkable except in HPI and below Resp: Reports: dyspnea, productive cough and wheezing PFSH ED PFSH: Medical History COPD (chronic obstructive pulmonary disease) Depression Diabetes Homeless Tobacco use disorder Type 2 diabetes mellitus Surgical History History of ear surgery Family History Father Cancer Mother Cancer Social History Smoking and tobacco/nicotine status: current every day tobacco/nicotine user Alcohol intake: unknown Substance/Drug Use: unknown Physical Exam Const: COMMON NORMALS: no acute distress and alert HENMT: COMMON NORMALS: normocephalic and moist oral mucous membranes HEAD & SCALP: normocephalic Resp: COMMON NORMALS: No use of accessory muscles; negative for normal respiratory effort and negative for clear to auscultation bilaterally (Bilateral expiratory wheeze) AUSCULTATION: not clear to auscultation bilaterally (Bilateral expiratory wheeze) Cardio: COMMON NORMALS: S1 normal heart sound present and S2 normal heart sound present HEART SOUNDS: S1 normal heart sound present and S2 normal heart sound present GI: COMMON NORMALS: Normal to inspection, nondistended, normoactive bowel sounds present, Soft to palpation and non-tender PALPATION: Yes Soft to palpation Neuro: SENSORIUM/ORIENTATION: Yes alert Course ED course: Patient improved throughout his time in the emergency department he was afebrile he is under percent on room air he will have the proper pieces to his nebulizer and I will write him a prescription for some steroids and we discussed that he should discontinue smoking. Vital Signs: Vital signs: Vital Signs Temperature 97.6 F 09/15/24 04:48 Pulse Rate 82 09/15/24 04:55 Respiratory Rate 18 09/15/24 04:55 Blood Pressure 124/58 09/15/24 04:55 Pulse Oximetry 100 09/15/24 04:55 Oxygen Delivery Me thod Room Air 09/15/24 04:48 MDM - SOB/Dyspnea Medical Decision Making 63-year-old male in with concerns of shortness of breath in the face of known COPD unfortunately he does not take any inhalers he says that he cannot tolerate these he does have a nebulizer but does not have all the pieces to be able to administer treatments. He was given a DuoNeb in the back of the ambulance that significantly helped him his oxygen saturation is reasonable unfortunately still continues to smoke. Will check an x-ray observe him we may give him another treatment depending on how he responds bonds and he has already had some Solu-Medrol. I do not think the patient will likely need admitted. Lab Data Labs/Radiology: Radiology Impressions Chest X-Ray 09/15/24 05:05 IMPRESSION: No acute findings. All radiology interpretation(s) finalized by discharge Discharge Plan Discharge Patient Disposition: Home Clinical Impression: Acute exacerbation of chronic obstructive airways disease Condition: Stable Prescriptions: New prednisone 20 mg tablet 20 mg PO BID 5 Days Qty: 10 0RF No Action amoxicillin-pot clavulanate 875-125 mg tablet 1 tab PO BID Qty: 14 0RF hydrocodone-acetaminophen 5-325 mg tablet 1 tab PO Q6H PRN (Reason: pain) Qty: 14 0RF albuterol sulfate 2.5 mg /3 mL (0.083 %) solution for nebulization 2.5 mg inhalation TID Discharge Orders: Discharge ED (Routine); Ordered 09/15/24 Ordered By: Chan Rivera Discharge Diet: Advance as tolerated Discharge Activity: Limit activity as instructed Patient Instructions: Opioid Safety, Pain Management Activity Restrictions/Additional Instructions: 1. Stop smoking. Take nebulized treatments every 4-6 hours while still having difficulty. treating and pumping supervisor prednisone as soon as possible. 2. Follow-up with primary care for recheck and further evaluation. 3. Return for new or worsening symptoms. Print Language: Indonesian Coding Level of Care Code ED Certified Real Estate Appraiser for David De La Garza
[2024-09-15 05:53] VITALS: BP 124/58; PULSE 80; O2SAT 97
== END 2024-09-15 05:54 | disposition home or self-care (01) ==
PROVIDERS: Emergency Provider Family Medicine
DX: J44.1 Chronic obstructive pulmonary disease with (acute) exacerbation (principal); F17.200 Nicotine dependence, unspecified, uncomplicated
CPT/HCPCS: 36415; 71045; 93005; 99284

== ENCOUNTER 2024-10-13 21:32 | Emergency (ER) | payer OTHER, MEDICAID, SELFPAY ==
[2024-10-13 21:53] VITALS: BP 135/86; PULSE 105; RESP 20; TEMP 36.6; O2SAT 95; BMI 27.8
--- NOTE | 2024-10-14 00:17 | W.ED.SKABFB ---
HPI - Skin/Abscess/Foreign Bdy General: Chief complaint: Skin/Abscess/Foreign Body Stated complaint: ABCESS ON LEG Time Seen by Provider: 10/14/24 00:01 History of Present Illness: Patient is a 64yo male who presents to the ED with a complaint of a spider bite on his left inner thigh that appeared yesterday. The patient reports the area is itching like hell but denies fever or other systemic symptoms. He noticed two small puncture manrique at the site, which he attributes to a spider bite. The patient has a history of a previous brown recluse spider bite approximately 8 years ago. No drainage or significant spreading of the redness is reported. Patient denies any other similar lesions elsewhere on his body. Related Data Home Medications ?Medication ?Instructions ?Recorded ?Confirmed albuterol sulfate 2.5 mg/3 mL 2.5 mg inhalation TID 10/17/22 03/07/23 (0.083 %) solution for nebulization Previous Rx's ?Medication ?Instructions ?Recorded amoxicillin 875 mg-potassium 1 tab PO BID #14 tabs 03/05/23 clavulanate 125 mg tablet hydrocodone 5 mg-acetaminophen 325 1 tab PO Q6H PRN pain #14 tabs 03/16/23 mg tablet doxycycline hyclate 100 mg capsule 100 mg PO BID 7 days #14 caps 10/14/24 Allergies Allergy/AdvReac Type Severity Reaction Status Date / Time No Known Allergies Allergy Verified 04/11/23 18:16 [facility] ED PFSH: Medical History COPD (chronic obstructive pulmonary disease) Depression Diabetes Homeless Tobacco use disorder Type 2 diabetes mellitus Surgical History History of ear surgery Family History Father Cancer Mother Cancer Social History Smoking and tobacco/nicotine status: current every day tobacco/nicotine user Alcohol intake: unknown Substance/Drug Use: unknown Course Vital Signs: Vital signs: Vital Signs Temperature 97.9 F 10/13/24 21:53 Pulse Rate 105 H 10/13/24 21:53 Respiratory Rate 20 H 10/13/24 21:53 Blood Pressure 135/86 10/13/24 21:53 Pulse Oximetry 95 10/13/24 21:53 Oxygen Delivery Me thod Room Air 10/13/24 21:53 MDM - Skin/Abscess/Foreign Bdy Medicial Decision Making ROS: Constitutional: Denies fever. Skin: Reports localized itching at the bite site on left inner thigh. All other systems reviewed and negative. MEDICATIONS AND ALLERGIES: Medications: - Januvia (for diabetes) - Meloxicam Allergies: No known drug allergies PAST HISTORICAL DATA: PMH: Diabetes mellitus PSH: Surgery last year (specific procedure not specified), reports limited mobility in an unspecified joint Social History: Transportation - will call for ride home VITAL SIGNS: No specific vital signs were verbalized during this encounter. PHYSICAL EXAM: General: Alert, non-toxic appearing, in no apparent distress HEENT: Head normocephalic and atraumatic. Mucous membranes moist. Neck: Supple Respiratory: No increased work of breathing, No wheezing Cardiac: Regular rate and rhythm, 2+ pulses in all extremities Abdomen: Soft, non-distended, no rebound or guarding Neuro: Cranial nerves grossly intact, no focal motor or sensory deficits noted Skin: Left inner thigh with approximately 1-2 cm area of induration with two visible puncture manrique. Surrounding ecchymosis present. No significant cellulitis, though there may be some very early mild cellulitis around the bite wound. Localized histamine reaction noted. No fluctuance or drainable abscess. Extremities: No leg swelling or edema. Palpable pedal pulses bilaterally. INITIAL IMPRESSION AND PLAN: Given the history and presentation, the primary working diagnosis is insect/spider bite with possible early cellulitis. Additional considerations include local allergic reaction and early abscess formation. Based on this initial impression I will prescribe oral antibiotics (doxycycline) to treat potential cellulitis and provide discharge instructions with return precautions. TEST INTERPRETATIONS: No diagnostic tests were ordered or performed during this encounter. PROCEDURES: No procedures were performed during this encounter. CONSIDERED BUT NOT PERFORMED: Incision and drainage CONSIDERED but NOT DONE due to absence of fluctuance or drainable abscess. Laboratory studies CONSIDERED but NOT DONE due to localized nature of infection without systemic symptoms or signs of sepsis. FINAL IMPRESSION: Based on all the above, my clinical impression is most compatible with insect/spider bite with early cellulitis of the left inner thigh. The clinical picture is not currently suggestive of deep tissue infection, necrotizing fasciitis, or systemic infection. Although other conditions were also considered, they were deemed unlikely based on the clinical information available. CLINICAL DISPOSITION: The patient's current condition is stable in my estimation and the most appropriate and indicated disposition at this time is discharge home with oral antibiotics and return precautions. The patient is safe for discharge home as he presents with a localized skin infection without systemic symptoms. The lesion shows no signs of abscess formation requiring drainage, and there are no concerning features suggestive of a severe infection such as necrotizing fasciitis. The patient is alert, non-toxic appearing, and able to take oral medications. He has arranged for transportation home and will be able to obtain his prescription from [facility] pharmacy in [place], [place]. RISK STRATIFICATION AND CLINICAL DECISION RULES APPLIED: No formal clinical decision rules were applied in this case as the presentation was straightforward with a visible lesion consistent with an insect/spider bite with early cellulitis. CASE SUMMARY: Adult male patient presented with a 1-day history of a suspected spider bite to the left inner thigh with two visible puncture manrique, localized induration, and surrounding ecchymosis. Patient has a history of diabetes and is on Januvia. Physical examination revealed a 1-2 cm area of induration with early mild cellulitis but no abscess formation. The patient was hemodynamically stable without systemic symptoms. Given the localized nature of the infection and absence of systemic symptoms, the patient was prescribed doxycycline 100mg twice daily for 7 days and discharged home with return precautions. The patient was counseled on signs of worsening infection that would warrant return to the ED. No radiology studies performed this visit Discharge Plan Discharge Patient Disposition: Home Clinical Impression: Cellulitis, Insect bites Condition: Stable Prescriptions: New doxycycline hyclate 100 mg capsule 100 mg PO BID 7 Days Qty: 14 0RF No Action amoxicillin-pot clavulanate 875-125 mg tablet 1 tab PO BID Qty: 14 0RF hydrocodone-acetaminophen 5-325 mg tablet 1 tab PO Q6H PRN (Reason: pain) Qty: 14 0RF albuterol sulfate 2.5 mg /3 mL (0.083 %) solution for nebulization 2.5 mg inhalation TID Discharge Orders: Discharge ED (Routine); Ordered 10/14/24 Ordered By: Dean Flores Discharge Diet: Diabetic Discharge Activity: Resume usual activity Patient Instructions: Cellulitis (ED), Opioid Safety, Pain Management Activity Restrictions/Additional Instructions: Diagnosis: Spider/insect bite with early cellulitis of the left inner thigh Medications: - Doxycycline 100mg: Take 1 pill by mouth twice daily for 7 days - Continue your regular medications Home Care Instructions: - Keep the area clean and dry - You may apply a cool compress to the area for comfort - Avoid scratching the area to prevent further irritation or infection - Elevate the leg when possible to reduce swelling Return to the Emergency Department immediately if you experience: - Increasing redness, warmth, or swelling around the bite area - Red streaks extending from the bite area - Drainage or pus from the bite site - Fever (temperature greater than 100.4?F or 38?C) - Increasing pain not relieved by [id number] pain medications - Development of blisters or black/ tissue at the bite site - Difficulty breathing, dizziness, or severe headache Follow up with your primary care provider in 2-3 days to ensure the infection is resolving appropriately. Please pickling operator your prescription from [facility] pharmacy in [place], [place]. Print Language: Latvian Coding Level of Care Code ED Director Of Design for David De La Garza
[2024-10-14 00:59] VITALS: BP 115/84; PULSE 88; RESP 20; O2SAT 95
== END 2024-10-14 01:01 | disposition home or self-care (01) ==
PROVIDERS: Emergency Provider Student in an Organized Health Care Education/Training Program
DX: L03.116 Cellulitis of left lower limb (principal); W57.XXXA Bitten or stung by nonvenomous insect and other nonvenomous arthropods, initial encounter; Z72.0 Tobacco use; E11.9 Type 2 diabetes mellitus without complications; J44.9 Chronic obstructive pulmonary disease, unspecified
CPT/HCPCS: 99283

== ENCOUNTER 2024-11-12 14:36 | Emergency (ER) | payer OTHER, MEDICAID, SELFPAY ==
[2024-11-12 14:37] VITALS: BP 110/68; PULSE 100; RESP 20; TEMP 36.7; O2SAT 92; BMI 29.1
--- NOTE | 2024-11-12 14:41 | XR_ITS ---
WS: [id number] Portable AP upright chest, 11/12/2024 Clinical Data: Weakness Comparison: Portable chest, 09/15/2024 Findings: No nodules, masses or effusions are seen. The heart is normal. The pulmonary vascularity is not increased. No pneumonia or pneumothorax is seen. The diaphragms are flattened. There are old right rib fractures and an old unhealed right clavicular fracture. XR/XR chest 1V portable [id number] Impression: Hyperinflation.
--- NOTE | 2024-11-12 14:41 | ECG_ITS ---
[facility] Date: 2024-11-12 Pat Name: Charbel Hood Department: Room: Gender: Male Director Medical: : 1960 Requested By: Tashia Coelho Order Number: [id number] Calderón MD: Serge Echeverria M.D. Measurements Intervals [place] Rate: 88 P: 64 MS: 151 QRS: 57 QRSD: 100 T: 79 QT: 366 QTc: 443 Interpretive Statements SINUS RHYTHM WITH FREQUENT VENTRICULAR PREMATURE COMPLEXES NONSPECIFIC T-WAVE ABNORMALITY ABNORMAL RHYTHM ECG Compared to ECG 09/15/2024 04:51:52 Ventricular premature complex(es) now present T-wave abnormality now present Sinus arrhythmia no longer present Electronically Signed On 11-13-2024 09:02:49 CDT by Serge Echeverria M.D. [id number]
--- OUTSIDE RECORDS SUMMARY | 2024-11-12 14:54 | XMS_ITS | Clinical Summary ---
Author Organization [facility] Address [address] [place] [address] Phone Care Team Providers Care Special Delivery Worker Name Role Phone Pili Longo MD Primary Care Provider Allergies No known active allergies Medications traZODone (DESYREL) 50 mg tablet Take 50 mg by mouth daily at bedtime. Active amitriptyline (ELAVIL) 10 mg tablet Take 20 mg by mouth daily at bedtime. Active meloxicam (MOBIC) 15 mg tablet Take 15 mg by mouth daily. Active esomeprazole (NexIUM) 20 mg Capsule, Delayed Release(E.C.) Take 40 mg by mouth daily before breakfast. Active rOPINIRole (REQUIP) 1 mg tablet Take 1 mg by mouth 3 times daily. Active sitaGLIPtin phosphate (JANUVIA) 25 mg Tablet Take 25 mg by mouth daily with breakfast. Active albuterol sulfate HFA 90 mcg/actuation aerosol inhaler Take 2 Puffs by inhalation every 6 hours as needed for Shortness of Breath. Active HYDROcodone-maxime taminophen (NORCO) 5-325 mg tabletIndicatio ns:Abscess of left hand including fingers,Celluli tis of left hand Take 1 Tablet by mouth every 6 hours as needed for Pain. Max Daily Amount: 4 Tablets 28 Tablet 3 Active Active Problems Problem Noted Date Diagnosed Date Cellulitis of left hand 03/08/2023 Type 2 diabetes mellitus, wi thout long-term current use of insulin 03/08/2023 Benign hypertension 03/08/2023 Insomnia 03/08/2023 Spider bite 03/08/2023 Abscess of left hand including fingers 3 Social History Tobacco Use Types Packs/Day Years Used Date Smoking Tobacco: Every Day Cigarettes 1 25 Smokeless Tobacco: Never Tobacco Cessation:Ready to Q uit: Not Asked; Counseling Given: Not Answered Sex and Gender Information Value Date Recorded Sex Assigned at Not on file Legal Sex Male 7:12 PM [facility] ADMINISTRATOR Gender Identity Not on file Sexual Orientation Not on file Last Filed Vital Signs Vital Sign Reading Time Taken Comments Blood Pressure 130/68 05/03/2023 11:10 AM [facility] ADMINISTRATOR Pulse 81 03/11/2023 7:17 AM [facility] ADMINISTRATOR Temperature 36.8 C (98.2 F) 03/11/2023 7:17 AM [facility]ILD [facility] ADMINISTRATOR Respiratory Rate 16 03/11/2023 7:17 AM [facility] ADMINISTRATOR Oxygen Saturation 94% 03/11/2023 7:17 AM [facility] ADMINISTRATOR Inhaled Oxygen Concentration - - Weight 70.8 kg (156 lb) 05/03/2023 11:10 AM [facility]ILD [facility] ADMINISTRATOR Height 170.2 cm (5' 7 ) 05/03/2023 11:10 AM [facility] ADMINISTRATOR Body Mass Index 24.43 05/03/2023 11:10 AM [facility]ILD [facility] ADMINISTRATOR Plan of Treatment Health Maintenance Due Date Last Done Comments DIABETES ANNUAL FOOT EXAM 1980 DIABETES ANNUAL RETINAL EXAM 1980 DIABETES MICROALBUMIN ANNUAL SCREEN 1980 LDL CHOLESTEROL ANNUAL 1980 DTAP/TDAP/TD VACCINES (1 - Tdap) 1981 COLORECTAL SCREENING 10/15/2007 Colorectal Cancer Screening 10/15/2007 FIT-DNA Q 3 years 10/15/2007 FIT/FOBT Q 1 year 10/15/2007 Flex Sig/CT Colonography Q 5 years 10/15/2007 ZOSTER VACCINE (1 of 2) 2012 RSV VACCINE (60+ or ) (1 - Risk 60-74 years 1-dose series) 2022 DIABETES HBA1C Q 6 MONTHS 09/06/2023 03/08/2023 INFLUENZA VACCINE (#1) 2024 Procedures Procedure Name Priority Date/Time Associated Diagnosis Comments HEMOGLOBIN A1C Routine 03/08/2023 2:14 AM CHILD [facility] C[facility] ADMINISTRATOR from Last 3 Months or Most Recently Relevant to Health Maintenance Results * (ABNORMAL) HEMOGLOBIN A1C (03/08/2023 2:14 AM [facility]ILD [facility] ADMINISTRATOR) HEMOGLOBIN A1C 5.9(H) <=5.6 % 03/09/2023 7:58 AM CHILD CARE CENTER ADMINISTRATOR [facility] EST. AVG GLUCOSE, A1C 123 mg/dL 03/09/2023 7:58 AM CHILD CARE CENTER ADMINISTRATOR [facility] [employer] [facility] Blood Venipuncture / Unknown 03/08/2023 2:14 AM CHILD [facility] C[facility] ADMINISTRATOR 03/08/2023 4:19 AM CHILD CARE CENTER ADMINISTRATOR Narrative [facility] [employer] [facility] - 03/09/2023 7:58 AM CHILD CARE CENTER ADMINISTRATOR HGB A1C INTERPRETATION NORMAL: <5.7% PRE-DIABETES: 5.7 - 6.4% DIABETES: 6.5% OR GREATER Khadra Jane MD CHEMISTRY ORDERABLES Final R esult [facility] [employer] [facility] CLIA # [id number] [address] [id number] from Last 3 Months or Most Recently Relevant to Health Maintenance Insurance [place] [address] [place] [address] DUAL COMPLETE O [facility] [id number] RX [employer] Member Subscriber Plan / Payer (Ef fective 2023-Present) Name:Charbel Hood Relation to Subscriber:Not on file Name:Charbel Hood Subscriber ID:Not on file Date of :1960 Payer ID:Not on file Group ID:[id number] Type:RX Medicare Part D Address: [address] Advance Directives For more information, please contact: [phone] * Full Code (Latest Code Status on File) Date Activated Date Inactivated Comments 03/08/2023 4:52 PM 03/11/2023 6:54 PM * Full Code Date Activated Date Inactivated Comments 03/08/2023 12:25 AM 03/08/2023 4:52 PM Care Teams Special Delivery Worker Relationship Specialty Start Date End Date Pili Longo MD [address] [place] [address] PCP - General Family Practice 03/08/23
[2024-11-12 14:58] LABS: Hematocrit 44.9 % (37-53); Hemoglobin 14.50 g/dL (11.27-16.99); Mean Corpuscular HGB Conc 32.3 g/dL (30-55); Mean Corpuscular Hemoglobin 28.6 pg (27-33); Mean Corpuscular Volume 88.6 fl (82-101); Nucleated Red Blood Cells % 0 %; Platelet Count 303 10^3/cmm (157-399); Red Blood Count 5.07 10^6/uL (3.85-5.65); White Blood Count 11.13 10^3/uL (3.29-11.43)
[2024-11-12 15:35] LABS: Glucose Urine UA Negative (Normal); Nitrate Urine Negative (Negative); Specific Gravity, Urine 1.019 (1.005-1.030)
[2024-11-12] MEDS: methylPREDNISolone sod succ 125 mg/2 mL INJ IVP (15:35)
[2024-11-12 15:44] LABS: Lactic Sepsis W/Reflex 2.8 mmol/L (0.5-2.2)
[2024-11-12 15:46] VITALS: BP 118/54; PULSE 81; RESP 18; O2SAT 100; O2SAT 97
[2024-11-12 15:47] LABS: Troponin(5th) Baseline 8 ng/L (0-15)
[2024-11-12 15:50] LABS: ABG PCO2 39.5 mmHg (35-45); ABG PH Result 7.47 (7.35-7.45); Alveolar-Arterial Oxygen Gradi 3.0 mmHg (5-10); Arterial Blood Gas Hematocrit 45.7 % (42-52); Blood Gas Operator Identificat AMH; Blood Gas Sample Site Brachial, left; Blood Gas Sample Type Arterial; Carboxyhemoglobin 5.5 %THgb (0.4-20.1); Glucose Level-ABG 111.0 mg/dL (70-115); HCO3 ABG 28.5 mmol/L (22-26); Ionized Calcium Level - ABG 1.3 mmol/L (1.1-1.4); Methemoglobin 0.8 % (0.4-1.5); Oxygen Saturation ABG 97.6; PO2 ABG 77.0 mmHg (80.0-100.0); PO2 FiO2 Ratio Arterial Blood 366; Potassium Level - ABG 3.8 mmol/L (3.5-5.0); Sodium Level - ABG 142.0 mmol/L (131-143)
--- NOTE | 2024-11-12 15:52 | W.ED.WEAKNES ---
HPI - Weakness General: Chief complaint: Weakness Stated complaint: Weakness Time Seen by Provider: 11/12/24 14:37 History of Present Illness: 64-year-old male with a history of COPD and tobacco dependence who presents emergency room with shortness of breath and generalized weakness. He says been going on for couple of days. Worse with exertion. He is not on oxygen at home and not requiring oxygen here. No fevers. Some pressure in his chest. No abdominal pain. No nausea or vomiting Related Data Home Medications ?Medication ?Instructions ?Recorded ?Confirmed albuterol sulfate 2.5 mg/3 mL 2.5 mg inhalation TID 10/17/22 11/12/24 (0.083 %) solution for nebulization acetaminophen 325 mg tablet (Pain 650 mg PO QID PRN Pain 11/12/24 11/12/24 Relief (acetaminophen)) atorvastatin 80 mg tablet 80 mg PO DAILY 11/12/24 11/12/24 ibuprofen 200 mg tablet 600 mg PO Q6H PRN Pain 11/12/24 11/12/24 meloxicam 15 mg tablet 15 mg PO DAILY 11/12/24 11/12/24 ropinirole 0.5 mg tablet 0.5 mg PO BEDTIME 11/12/24 11/12/24 sitagliptin phosphate 100 mg 100 mg PO DAILY 11/12/24 11/12/24 tablet (Januvia) trazodone 100 mg tablet 100 mg PO BEDTIME 11/12/24 11/12/24 Previous Rx's ?Medication ?Instructions ?Recorded albuterol sulfate 90 mcg/actuation 2 inh inhalation Q4H PRN shortness 11/12/24 aerosol inhaler of breath or wheezing #6.7 grams doxycycline hyclate 100 mg capsule 100 mg PO BID 7 days #14 caps 11/12/24 prednisone 20 mg tablet 60 mg (3 x 20 mg) PO DAILY #20 tabs 11/12/24 Allergies Allergy/AdvReac Type Severity Reaction Status Date / Time No Known Allergies Allergy Verified 04/11/23 18:16 Review of Systems Narrative: Constitutional symptoms: Negative except as documented in HPI. Skin symptoms: Negative except as documented in HPI. Eye symptoms: Negative except as documented in HPI. ENMT symptoms: Negative except as documented in HPI. Respiratory symptoms: Negative except as documented in HPI. Cardiovascular symptoms: Negative except as documented in HPI. Gastrointestinal symptoms: Negative except as documented in HPI. Genitourinary symptoms: Negative except as documented in HPI. Musculoskeletal symptoms: Negative except as documented in HPI. Neurologic symptoms: Negative except as documented in HPI. Psychiatric symptoms: Negative except as documented in HPI. Endocrine symptoms: Negative except as documented in HPI. PFSH ED PFSH: Medical History (Updated 11/12/24 @ 16:18 by Tashia Louise MD) Tobacco use disorder COPD (chronic obstructive pulmonary disease) Type 2 diabetes mellitus Diabetes Homeless Depression Surgical History History of ear surgery Family History Father Cancer Mother Cancer Social History Smoking and tobacco/nicotine status: current every day tobacco/nicotine user Alcohol intake: unknown Substance/Drug Use: unknown Physical Exam Narrative: EXAM NARRATIVE: General: Alert, no acute distress. Skin: Warm, dry. Head: Normocephalic, atraumatic. Neck: Supple, trachea midline. Eye: Extraocular movements are intact. Ears, nose, mouth and throat: Oral mucosa moist. Cardiovascular: Regular rate and rhythm, Normal peripheral perfusion. Respiratory: coarse, scattered wheeze, mild increased wob. tachypnea, breath sounds are equal, Symmetrical chest wall expansion. Gastrointestinal: Soft, Nontender, Non distended Musculoskeletal: Normal ROM, no deformity. Neurological: Alert and oriented, No focal neurological deficit observed. Psychiatric: Cooperative, appropriate mood & affect. Course Vital Signs: Vital signs: Vital Signs Temperature 98.1 F 11/12/24 14:37 Pulse Rate 81 11/12/24 15:46 Respiratory Rate 18 11/12/24 15:46 Blood Pressure 118/54 11/12/24 15:46 Pulse Oximetry 97 11/12/24 15:46 Oxygen Delivery Me thod Room Air 11/12/24 15:46 MDM - Weakness Medical Decision Making Differential diagnosis for patient with shortness of breath includes but is not limited to and based on the above HPI, review of systems and physical exam: Pneumonia. Bronchitis. Asthma or COPD with acute exacerbation. Acute coronary syndrome / [place]. Pulmonary embolism. Anxiety. Congestive heart failure. Viral infections including influenza and Covid-19. Atrial fibrillation. Anxiety. Pleural effusion. Pneumothorax. Orders placed to evaluate differential diagnosis based on the above differential, HPI and physical exam EKG: Time 1448. Rate 88. Normal sinus rhythm, nonspecific T wave abnormality, PVCs, normal NM & QRS intervals, This was reviewed and interpreted by myself the ER physician at 1453 Chest x-ray: Hyperexpansion. No acute process. No infiltrate. No pneumothorax. This was reviewed and interpreted by myself the emergency room physician. I also reviewed the radiology report. Lab Review: Laboratory results were reviewed and interpreted by myself the emergency room physician. No leukocytosis. No anemia. No renal failure. Blood gas shows no CO2 retention and no hypoxemia. I reviewed the patient's medical record. Reexamination: Patient remained stable. No increased work of breathing. No altered mental status. No focal motor deficits. Wheezes improved some. He has not required any oxygen. Assessment and plan: COPD with acute exacerbation ?IV Solu-Medrol, 2 updrafts. - Discharged home - Discussed plan with patient. Answered any questions. - Evaluation and treatment of this problem were appropriate in the emergency setting. Lab Data 11/12/24 14:45 11/12/24 15:18 Radiology Impressions Chest X-Ray 11/12/24 14:41 Impression: Hyperinflation. Laboratory Results WBC 11.13 10^3/uL (3.29-11.43) 11/12/24 14:45 RBC 5.07 10^6/uL (3.85-5.65) 11/12/24 14:45 Hgb 14.50 g/dL (11.27-16.99) 11/12/24 14:45 Hct 44.9 % (37-53) 11/12/24 14:45 MCV 88.6 fl (82-101) 11/12/24 14:45 MCH 28.6 pg (27-33) 11/12/24 14:45 MCHC 32.3 g/dL (30-55) 11/12/24 14:45 RDW 13.7 % (12.1-15.1) 11/12/24 14:45 Plt Count 303 10^3/cmm (157-399) 11/12/24 14:45 MPV 11.3 fL (7.4-10.4) H 11/12/24 14:45 Neut % (Auto) 58.3 % 11/12/24 14:45 Lymph % (Auto) 28.6 % 11/12/24 14:45 [place] % (Auto) 10.7 % 11/12/24 14:45 Eos % (Auto) 1.0 % 11/12/24 14:45 Baso % (Auto) 0.9 % 11/12/24 14:45 Neut # (Auto) 6.49 10^3/uL (1.8-7.7) 11/12/24 14:45 Lymph # (Auto) 3.2 10^3/uL (0.8-4.8) 11/12/24 14:45 [place] # (Auto) 1.2 10^3/uL (0.2-0.9) H 11/12/24 14:45 Eos # (Auto) 0.1 10^3/uL (0.0-0.8) 11/12/24 14:45 Baso # (Auto) 0.1 10^3/uL (0.0-0.1) 11/12/24 14:45 Nucleated RBC % (auto) 0 % 11/12/24 14:45 Nucleated RBCs # 0.0 /100WBC 11/12/24 14:45 Specimen Type Arterial 11/12/24 15:39 Sample Site Brachial, left 11/12/24 15:39 ABG pH 7.47 (7.35-7.45) H 11/12/24 15:39 ABG pCO2 39.5 mmHg (35-45) 11/12/24 15:39 ABG pO2 77.0 mmHg (80.0-100.0) L 11/12/24 15:39 ABG PO2/FiO2 Ratio 366 11/12/24 15:39 ABG HCO3 28.5 mmol/L (22-26) H 11/12/24 15:39 ABG O2 Saturation 97.6 11/12/24 15:39 ABG Base Excess 4.4 mmol/L (-2.0-2.0) H 11/12/24 15:39 Gurpreet Test N/a 11/12/24 15:39 A-a O2 Gradient 3.0 mmHg (5-10) L 11/12/24 15:39 Hematocrit 45.7 % (42-52) 11/12/24 15:39 Hgb O2 Saturation 91.4 % (95-100) L 11/12/24 15:39 Carboxyhemoglobin 5.5 %THgb (0.4-20.1) 11/12/24 15:39 Methemoglobin 0.8 % (0.4-1.5) 11/12/24 15:39 Total Hemoglobin 14.9 g/dL (14-18) 11/12/24 15:39 Sodium 142.0 mmol/L (131-143) 11/12/24 15:39 Potassium 3.8 mmol/L (3.5-5.0) 11/12/24 15:39 Glucose 111.0 mg/dL (70-115) 11/12/24 15:39 Ionized Calcium 1.3 mmol/L (1.1-1.4) 11/12/24 15:39 O2 Delivery Device Room air 11/12/24 15:39 FiO2 21.0 % 11/12/24 15:39 Dandy Operator ID [id number] 11/12/24 15:39 Sodium 139 mmol/L (136-145) 11/12/24 15:18 Potassium 3.9 mmol/L (3.5-5.1) 11/12/24 15:18 Chloride 99 mmol/L (98-107) 11/12/24 15:18 Carbon Dioxide 27 mmol/L (22-29) 11/12/24 15:18 Anion Gap 16.9 (5-19) 11/12/24 15:18 BUN 12 mg/dL (8-23) 11/12/24 15:18 Creatinine 0.7 mg/dL (0.7-1.2) 11/12/24 15:18 GFR Calculation 114.3 mL/min (90-130) 11/12/24 15:18 Glucose 114 mg/dL (65-115) 11/12/24 15:18 Calculated Osmolality 289 mOsm/kg (285-295) 11/12/24 15:18 Lactic Acid 2.8 mmol/L (0.5-2.2) H 11/12/24 15:18 Calcium 9.7 mg/dL (8.5-10.5) 11/12/24 15:18 Total Bilirubin 0.2 mg/dL (0.15-1.2) 11/12/24 15:18 AST 15 U/L (0-40) 11/12/24 15:18 ALT 12 U/L (0-41) 11/12/24 15:18 Alkaline Phosphatase 70 U/L (40-130) 11/12/24 15:18 Troponin T Baseline 8 ng/L (0-15) 11/12/24 15:18 C-Reactive Protein 6.2 mg/L (0.0-4.9) H 11/12/24 15:18 NT-Pro-B Natriuret Pep 482 pg/mL (0-125) H 11/12/24 15:18 Total Protein 6.1 g/dL (6.6-8.7) L 11/12/24 15:18 Albumin 3.8 g/dL (3.5-5.2) 11/12/24 15:18 Globulin 2.3 g/dL (1.3-4.6) 11/12/24 15:18 Urine Color Yellow (Yellow) 11/12/24 15:18 Urine Appearance Cloudy (CLEAR) A 11/12/24 15:18 Urine pH 7.0 (5-7) 11/12/24 15:18 Ur Specific [place] 1.019 (1.005-1.030) 11/12/24 15:18 Urine Protein Trace (Negative) A 11/12/24 15:18 Urine Glucose (UA) Negative (Normal) 11/12/24 15:18 Urine Ketones Trace (Negative) 11/12/24 15:18 Urine Blood Negative (Negative) 11/12/24 15:18 Urine Nitrate Negative (Negative) 11/12/24 15:18 Urine Bilirubin Negative (Negative) 11/12/24 15:18 Urine Urobilinogen 1.0 mg/dL (Negative) 11/12/24 15:18 Ur Leukocyte Esterase Negative (Negative) 11/12/24 15:18 Urine RBC 0-2 /hpf (0-2) 11/12/24 15:18 Urine WBC 0-5 /hpf (0-5) 11/12/24 15:18 Ur Squamous Epith Cells 0-5 /hpf (0-5) 11/12/24 15:18 Amorphous Sediment Not Reportable 11/12/24 15:18 Urine Bacteria None seen /hpf (NONE) 11/12/24 15:18 Hyaline Casts 1.21 /lpf 11/12/24 15:18 All radiology interpretation(s) finalized by discharge Discharge Plan Discharge Patient Disposition: Home Clinical Impression: COPD with acute exacerbation Condition: Stable Prescriptions: New doxycycline hyclate 100 mg capsule 100 mg PO BID 7 Days Qty: 14 0RF prednisone 20 mg tablet 60 mg PO DAILY Qty: 20 0RF Rx Instructions: 3 tabs (60 mg) x 3 days. 2 tabs (40 mg) x 3 days. 1 tab (20 mg) x 3 days. 1/2 tab (10 mg) x 4 days albuterol sulfate 90 mcg/actuation HFA aerosol inhaler 2 inh inhalation Q4H PRN (Reason: shortness of breath or wheezing) Qty: 6.7 0RF Rx Instructions: Please provide patient with a spacer No Action albuterol sulfate 2.5 mg /3 mL (0.083 %) solution for nebulization 2.5 mg inhalation TID atorvastatin 80 mg tablet 80 mg PO DAILY acetaminophen [Pain Relief (acetaminophen)] 325 mg Tablet 650 mg PO QID PRN (Reason: Pain) meloxicam 15 mg tablet 15 mg PO DAILY trazodone 100 mg tablet 100 mg PO BEDTIME ropinirole 0.5 mg tablet 0.5 mg PO BEDTIME ibuprofen 200 mg Tablet 600 mg PO Q6H PRN (Reason: Pain) Januvia 100 mg tablet 100 mg PO DAILY Discharge Orders: Discharge ED (Routine); Ordered 11/12/24 Ordered By: Tashia Louise Discharge Diet: Usual diet Discharge Activity: Increase activity as tolerated Patient Instructions: COPD (Chronic Obstructive Pulmonary Disease) (ED), Opioid Safety, Pain Management, Patient Portal & Diane Instructions Activity Restrictions/Additional Instructions: Thank you for choosing [facility] for your healthcare needs today. You have been screened and evaluated and felt safe for discharge. Health conditions do change or evolve sometimes and as such it is important that you follow up with your Primary Doctor to be re checked, 3-5 days is a general good time frame for follow up. You are always welcome to return to the ED for re assessment if your symptoms are worsening or you have new concerns Print Language: Greek Coding Level of Care Code ED Store Operations Associate for David De La Garza
[2024-11-12 15:57] LABS: Alanine Aminotransferase 12 U/L (0-41); Albumin Level 3.8 g/dL (3.5-5.2); Alkaline Phosphatase 70 U/L (40-130); Anion Gap 16.9 (5-19); Aspartate Amino Transferase 15 U/L (0-40); Blood Urea Nitrogen 12 mg/dL (8-23); Calcium 9.7 mg/dL (8.5-10.5); Carbon Dioxide 27 mmol/L (22-29); Chloride 99 mmol/L (98-107); Creatinine Clr Calc Pharmacy 113.6064; Globulin 2.3 g/dL (1.3-4.6); Glucose 114 mg/dL (65-115); NT Pro B Type Natriuretic Pept 482 pg/mL (0-125); Osmolality Calculated 289 mOsm/kg (285-295); Potassium 3.9 mmol/L (3.5-5.1); Sodium 139 mmol/L (136-145); Total Protein 6.1 g/dL (6.6-8.7)
[2024-11-12 16:37] VITALS: BP 110/51; PULSE 109; O2SAT 94
[2024-11-12 17:09] LABS: Reflex Lactate Order REFLEX LACTIC ORDERD
== END 2024-11-12 16:38 | disposition home or self-care (01) ==
PROVIDERS: Emergency Provider Emergency Medicine
DX: J44.1 Chronic obstructive pulmonary disease with (acute) exacerbation (principal); Z72.0 Tobacco use; E11.9 Type 2 diabetes mellitus without complications; J44.9 Chronic obstructive pulmonary disease, unspecified
CPT/HCPCS: 36415; 36600; 71045; 80051; 80053; 81001; 82330; 82805; 83605; 83880; 84484; 85025; 86140; 87040; 93005; 94640; 96374; 99285; J2919

== ENCOUNTER → 2025-03-10 09:12 | Outpatient (BNVA) | payer OTHER, MEDICAID, SELFPAY | PROVIDERS: Visit Provider Student in an Organized Health Care Education/Training Program | DX: M24.542 Contracture, left hand (principal) | CPT/HCPCS: 73130; 99203 ==

== ENCOUNTER 2025-03-31 11:15 | Outpatient (CLI) | payer MEDICARE, MEDICAID, SELFPAY ==
--- NOTE | 2025-03-31 11:00 | MRR_ITS ---
PROCEDURE INFORMATION: Exam: MR Left Upper Extremity Other Than Joint Without Contrast; Fingers Exam date and time: 03/31/2025 11:29 AM Age: 64 years old Clinical indication: Pain; C/O left hand 3rd finger locking up -cannot bend; Had spider bite 3 years. Date of injury-3 yrs ago; Additional info: Left hand injury/middle finger spider bite TECHNIQUE: Imaging protocol: Magnetic resonance imaging of the left upper extremity without contrast. Exam focused on the fingers. COMPARISON: MR hand LT wo con* [id number] 03/07/2023 5:51 PM FINDINGS: Bones/joints: Scarring along the palmar aspect of the 3rd finger, correlate for history of trigger-point release. Mild scar tissue may be preventing flexion of the 3rd finger. Correlate with physical exam. See series 501, image 20. Collateral ligaments of digits: Unremarkable. No evidence of tear. Pulleys: No acute irene injury. Flexor compartment tendons: Unremarkable. No evidence of tear. Extensor compartment tendons: Unremarkable. No evidence of tear. Soft tissues: Unremarkable. MR/MR hand LT wo con* [id number] IMPRESSION: 1. Scarring along the palmar aspect of the 3rd finger, correlate for history of trigger-point release. Mild scar tissue may be preventing flexion of the 3rd finger. See series 501, image 20. Correlate with physical exam. No fluid collection or abscess. No osteomyelitis. 2. No acute irene injury.
== END 2025-03-31 11:16 | disposition home or self-care (01) ==
LOC: RAD 11:16
PROVIDERS: PCP Family Medicine; Visit Provider Student in an Organized Health Care Education/Training Program
DX: M65.142 Other infective (teno)synovitis, left hand (principal); L03.114 Cellulitis of left upper limb
CPT/HCPCS: 73218